=== PATIENT | male | born 1980 | race Caucasian/White ===

== ENCOUNTER 2025-07-17 16:31 | Emergency (ER) | payer BC, SELFPAY ==
--- OUTSIDE RECORDS SUMMARY | 2025-07-13 15:30 | XMS_ITS | Encounter Summary ---
Author Organization [facility] Address [address] [address] Phone Care Team Providers Care Clinical Trials Specialist Name Role Phone Wil Cao MD Primary Care Provider Reason for Visit * Reason Comments Hypertension Encounter Details Date Type Department Care Team (Late st Contact Info) Description 07/13/2025 3:30 PM EDT Office Visit [facility] [address] [phone] Aiyana Callahan ARNP [address] [phone] Essential hypertension (Primary Dx) Social History Tobacco Use Types Packs/Day Years Used Date Smoking Tobacco: Former Smokeless Tobacco: Never Alcohol Use Standard Drinks/Week Comments Yes 0 (1 standard drink = 0.6 oz pure alcohol) Alcoholic Drinks/day: Occasional social drink Sex and Gender Information Value Date Recorded Sex Assigned at Not on file Legal Sex Male 4:46 PM EST Gender Identity Not on file Sexual Orientation Not on file documented as of this encounter Last Filed Vital Signs Vital Sign Reading Time Taken Comments Blood Pressure 138/90 07/13/2025 3:33 PM EDT Pulse 75 07/13/2025 3:33 PM EDT Temperature - - Respiratory Rate - - Oxygen Saturation 97% 07/13/2025 3:33 PM EDT Inhaled Oxygen Concentration - - Weight 132 kg (291 lb 3.2 oz) 07/13/2025 3:33 PM EDT Height - - Body Mass Index 37.39 03/16/2019 12:00 PM EDT documented in this encounter Patient Instructions * Patient Instructions* Aiyana Callahan ARNP - 07/13/2025 3:30 PM EDT Blood pressure monitoring education: Monitor home blood pressure values after sitting for 5 minutes with back and arm support. Keep a log. Bring your log and blood pressure cuff to your next visit. documented in this encounter Progress Notes * Aiyana Callahan ARNP - 07/13/2025 3:30 PM EDT Images from the original note were not included. Patient Name: Alex Amaro, Male Date of : 1980, 45 y.o. Date: 07/13/2025 History of Present Illness Mr.. Alex Amaro is a 45 y.o.-year-old male with history of obesity and HTN H/o TACOS and never wanted to use CPAP. Had lost weight last year, but gained it back. Recently restarted regular exercise and now incorporated heavy weight lifting. Home BP 120/70s. Past Medical History Past Medical History: Diagnosis Date Anxiety disorder Hypertension Hypogonadism Irritable bowel syndrome Past Surgical History Past Surgical History: Procedure Laterality Date HERNIA REPAIR umbilical Family History Family History Problem Relation Age of Onset Diabetes Father Social History Social History Tobacco Use Smoking status: Former Smokeless tobacco: Never Substance Use Topics Alcohol use: Yes Comment: Alcoholic Drinks/day: Occasional social drink Review of Systems Constitutional: Negative for chills, fever and weight gain. HENT: Negative for nosebleeds. Eyes: Negative for blurred vision. Respiratory: Negative for cough and shortness of breath. Cardiovascular: Negative for chest pain, palpitations and leg swelling. Gastrointestinal: Negative for abdominal pain, diarrhea, heartburn, nausea, vomiting and poor appetite. Genitourinary: Positive for frequency. Negative for dysuria, flank pain, hematuria and urgency. On/off, followed by Urology Musculoskeletal: Negative. Skin: Negative for rash. Neurological: Negative for dizziness, tingling, tremors, numbness and headaches. Endo/Heme/Allergies: Negative. Psychiatric/Behavioral: Negative. Medication List Current Outpatient Medications Medication Sig Dispense Refill amLODIPine-benazepril (LOTREL 5-10) 5-10 MG per capsule TAKE ONE CAPSULE BY MOUTH EVERY DAY 90 capsule 3 atorvastatin (LIPITOR) 20 MG tablet Take 20 mg by mouth 1 (one) time each day Multiple Vitamin (multivitamin) capsule Take 1 capsule by mouth 1 (one) time each day [facility]-3 Fatty Acids (Fish Oil) 1000 MG capsule delayed-release Take 1 tablet by mouth 1 (one) time each day omeprazole (PriLOSEC) [address] capsule 1 (one) time each day Xyosted 75 MG/0.5ML solution auto-injector Inject 75 mg under the skin 1 (one) time per week alfuzosin (UROXATRAL) 10 MG 24 hr tablet Take 10 mg by mouth in the morning. (Patient not taking: Reported on 07/13/2025) Blood Pressure Monitoring (Omron 3 Series BP Monitor) device 1 Device 1 (one) time each day 1 each 0 No current facility-administered medications for this visit. Allergy List No Known Allergies Physical Exam BP 138/90 (BP Location: Right upper arm, Patient Position: Sitting, BP Cuff Size: Large adult) Pulse 75 Wt 291 lb 3.2 oz (132 kg) SpO2 97% BMI 37.39 kg/m?? Vitals reviewed. Constitutional: He is oriented to person, place, and time. He does not appear ill. No distress. HEENT: Mouth/Throat: Oropharynx is clear and moist. Eyes: Conjunctivae are normal. Neck: No JVD present. Cardiovascular: Normal rate, regular rhythm and normal heart sounds. No murmur heard.He exhibits no edema. Pulmonary/Chest: Effort normal and breath sounds normal. No respiratory distress. Abdominal: There is no abdominal tenderness. No hernia. Neurological: He is alert and oriented to person, place, and time. Skin: Skin is warm and dry. No rash noted. No erythema. Psychiatric: He has a normal mood and affect. His behavior is normal. Labs Chemistry Lab Units 04/26/25 0000 02/28/25 1636 08/29/24 1153 05/02/24 1153 07/20/23 1230 CREATININE mg/dL -- 0.91 -- -- -- BUN mg/dL -- 17 -- -- -- POTASSIUM mmol/L -- 4.3 -- -- -- SODIUM mmol/L -- 136 -- -- -- CO2 mmol/L -- 27 -- -- -- CHLORIDE mmol/L -- 103 -- -- -- ALBUMIN g/dL -- 3.9 -- -- -- EGFR mL/min/1.73m2 -- 107 -- -- -- HEMATOCRIT 47.4 -- 48.8 48.4 50.7 HEMOGLOBIN 15.4 -- -- -- -- PLATELETS AUTO 10*3/UL 218 -- -- -- -- Bone Mineral Lab Units 02/28/25 1636 CALCIUM mg/dL 9.5 ALK PHOS unit/L 79 Assessment & Plan 1. Essential hypertension Alex is a middle aged man with HTN in a setting of Obesity, TACOS -reportedly not on CPAP, and hypogonadism on Testosterone. BP sub optimal recently Continue Amlodipine/Benazepril (Lotrel) 5-10 mg QD for now No Edema Normal Renal function Secondary HTN lab work-up Negative Obesity- Discussed weight loss, pt thinking about GLP-1 Decrease dietary NA intake Avoid NSAIDs/OTC Decongestant medication Continue f/u with Urology for urinary frequency -Reports Sleep study is scheduled -Referred for 24 hour Ambulatory BP monitor Orders Placed This Encounter Blood Pressure Monitoring (Omron 3 Series BP Monitor) device Return in about 4 weeks (around 08/10/2025) for Next scheduled follow-up with Gayathri for BP check in the next 2-4 weeks . BRIGETTE Michael Cosigned by Conrad Etienne MD at 07/16/2025 8:48 PM EDT documented in this encounter Plan of Treatment Upcoming Encounters Date Type Department Care Team (Late st Contact Info) Description 08/07/2025 9:00 AM EDT Clinical Support [facility] [address] [phone] 08/08/2025 8:45 AM EDT Office [facility] [address] [phone] Aiyana Callahan ARNP [address] [phone] documented as of this encounter Visit Diagnoses Diagnosis Essential hypertension- Primary documented in this encounter Care Teams Clinical Trials Specialist Relationship Specialty Start Date End Date Wil Cao MD [address] [place] [address] PCP - General 11/05/20 documented as of this encounter
--- NOTE | ~2025-07-17 | XR_ITS ---
CLINICAL HISTORY: 1V CHEST 1 view chest x-ray Comparison: None provided Findings: No consolidation or effusion. Normal size heart. No acute fracture. IMPRESSION: 1. No acute findings. This document has been electronically signed by: Heike Jones MD on 07/17/2025 20:03:40
--- NOTE | 2025-07-17 16:33 | ECG_ITS ---
Test Reason : CP Blood Pressure : */* mmHG Vent. Rate : 115 BPM Atrial Rate : 115 BPM P-R Int : 150 ms QRS Dur : 82 ms QT Int : 300 ms P-R-T Axes : 16 27 0 degrees QTcB Int : 415 ms Sinus tachycardia Minimal voltage criteria for LVH, may be normal variant ( R in aVL ) Cannot rule out Anterior infarct , age undetermined Abnormal ECG No previous ECGs available Referred By: Suzie Stephens Electronically Signed By: Doe Phillips
[2025-07-17 16:49] VITALS: BP 147/74; PULSE 95; RESP 16; TEMP 36.2; O2SAT 95; BMI 24.4
--- NOTE | 2025-07-17 16:51 | ED.CHESTPAIN ---
HPI - Chest Pain General Chief Complaint: Chest Pain Stated Complaint: chest pain Time Seen by Provider: 07/17/25 19:14 Source: patient Mode of arrival: ambulatory Limitations: no limitations History of Present Illness ED Provider: DR. Chaudhary HPI narrative: 45-year-old male came in for evaluation of chest pain started about 2 weeks ago when his I watch detected rapid heartbeat at 180's patient felt slight left-sided chest pain that resolved shortly after patient has been getting chest pain on and off no clear aggravating factor, no clear relieving factors, patient Reportedly at 14:00 while he was at the gym today while he was lifting weight start to have mid chest pain that radiate toward the left shoulder, associated with shortness of breath that lasted for about 1 hour, patient feel resolution of all his symptoms. Related Data Allergies Allergy/AdvReac Type Severity Reaction Status Date / Time No Known Allergies Allergy Verified 07/17/25 16:51 Review of Systems Review of Systems: all other systems are reviewed and are negative Constitutional: Reports as per HPI and Reports no additional constitutional complaints Eyes: Reports as per HPI and Reports no additional eye complaints Reports system reviewed and no additional complaints, except as documented Cardiovascular: Reports as per HPI and Reports no additional cardiovascular complaints Respiratory: Reports as per HPI and Reports no additional respiratory complaints Gastrointestinal: Reports as per HPI and Reports no additional gastrointestinal complaints Genitourinary: Reports no additional female genitourinary complaints Musculoskeletal: Reports no additional musculoskeletal complaints Skin/Breast: Reports system reviewed and no additional complaints, except as docu Psychiatric: Reports no additional psychiatric complaints Endocrine: Reports no additional endocrine complaints Hematologic/Lymphatic: Reports no additional hematologic/lymphatic complaints Allergic/Immunologic: Reports no additional allergic/immunologic complaints Reports system reviewed and no additional complaints, except as documented and Reports Abnormal speech present [facility] Social History Social History Smoked in Last 30 Days: No Use of substances other than those prescribed or required for medical reasons: No Advance Directives: No Advance Directives Information Provided: Yes Physical Exam Vital Signs: Vital Signs: Last Vital Signs Temp 97.2 F 07/17/25 16:49 Pulse 78 07/17/25 19:17 Resp 16 07/17/25 19:17 BP 168/100 H 07/17/25 19:40 Pulse Ox 97 07/17/25 19:17 O2 Del Method Room Air 07/17/25 19:17 BMI result Body Mass Index 24.4 Vital signs have been reviewed and appear to be correct. Blood pressure elevated. Heart rate normal. Respiratory rate normal. Temperature normal. Oxygen saturation normal. Appearance: Alert. Oriented X3. No acute distress. Head: Normal external exam. Normocephalic. Atraumatic. No Mcdermott signs noted. No raccoon eyes noted Eyes: PERRLA. EOMI. Conjunctiva and sclera normal. Eyelids normal. ENT: TM's Normal. Pharynx normal. Uvula midline. Moist mucous membranes. No trismus noted. No drooling noted. No muffled voice noted. Neck: Normal inspection. Neck supple. FROM. No adenopathy. Thyroid Normal. No meningeal signs. No neck mass noted. CVS: Normal heart rate and rhythm. Heart sound normal. No murmurs noted. Pulses normal throughout. Respiratory: No respiratory distress. Painless inspiration. Breath sounds normal. No wheezes/rales/rhonchi noted. Chest nontender. No accessory muscle usage noted or decreased air movement noted. Abdomen: Soft and nontender. Bowel sounds normal in all 4 quadrants. No distention noted. No organomegaly noted. No visible injury noted. Back: No CVA tenderness. Full range of motion noted. Skin: Skin warm and dry. Normal skin color. Normal skin turgor. No rashes/lesions/lacerations noted. Extremities: No lower extremity edema. Extremities exhibit normal range of motion. Extremities nontender. Neuro: Oriented X 3. Cranial nerve exam: II-XII are grossly intact No motor deficit. No sensory deficit. Reflexes normal. Course Course Course Narrative: This is a Rapid Medical Examination (RME) performed by Patricia Stephens PA-C in triage. Full HPI, ROS, assessment and treatment plan per primary provider in the Main ED. Hx: 45 yo M here for eval of left sided chest pain intermittent x2.5 weeks. also endorses SOB today while at the gym. 2/10 pain at present. Plan: labs, ekg Reevaluation(s) Reevaluation #1: 45-year-old male came in for evaluation of left-sided chest pain for the past 3 weeks on and off, troponin is negative x2, low risk for DVT or pulmonary embolism with negative D-dimer, patient with history of high blood pressure and high cholesterol. Will have the patient follow-up with a internal medicine hospitalist as an outpatient. Time: 20:11 Medical Decision Making Differential Diagnosis Differential Diagnoses: The differential diagnosis associated with the presentation includes ( ACS, pulmonary embolism, muscular chest pain, pneumonia, pneumothorax, pleural effusion, myofascial chest pain.) Admission/Observation Consideration of admission/observation: Escalation of care including admission/observation considered Lab Data MDM Lab Attestation statement: I reviewed the patient's lab results. 07/17/25 17:02 07/17/25 17:02 Labs: Lab Results 07/17/25 07/17/25 Range/Units 17:02 19:50 WBC 4.8 (4.8-10.8) X10*3/uL RBC 5.77 (4.60-5.80) X10*6/uL Hgb 16.2 (14.0-18.0) g/dl Hct 48.3 (42.0-52.0) % MCV 83.7 (80.0-98.0) fL MCH 28.1 (27.0-33.0) pg MCHC 33.5 (31.0-36.0) g/dl RDW 13.2 (11.0-16.0) % Plt Count 207 (160-400) X10*3/uL MPV 10.8 (9.4-12.4) fL Immature Gran % (Auto) 0.2 (0.0-0.4) % Neut % (Auto) 53.8 (45-73) % Lymph % (Auto) 32.0 (20-40) % [place] % (Auto) 10.7 (2-11) % Eos % (Auto) 2.7 (0-4) % Baso % (Auto) 0.6 (0-2) % Lymph # (Auto) 1.5 (1.2-4.9) X10*3/uL [place] # (Auto) 0.5 (0.1-1.2) X10*3/uL Eos # (Auto) 0.1 (0.0-0.4) X10*3/uL Baso # (Auto) 0.0 (0.0-0.2) X10*3/uL Abs Immat Gran (auto) 0.01 (0.00-0.03) X10*3/uL Absolute Neuts (auto) 2.6 (2.0-8.3) x10*3/uL Absolute Nucleated RBC 0.000 (0.0-0.012) X10*3/uL Nucleated RBC % (auto) 0.0 (0.0-0.2) /100WBC D-Dimer High Sensitivty < 150 NG/ML Sodium 139 (135-145) mmol/L Potassium 4.0 (3.3-5.1) mmol/L Chloride 103 (96-108) mmol/L Carbon Dioxide 28 (22-29) mmol/L Anion Gap 12 (12-20) BUN 14 (9-16) mg/dL Creatinine 1.01 (0.5-1.4) mg/dL Estim Creat Clear Calc 101.3 Estimated GFR > 60 Random Glucose 85 (60-115) mg/dL Calcium 9.4 (8.4-10.2) mg/dL Magnesium 2.0 (1.6-2.6) mg/dL Total Bilirubin 0.6 (0.0-1.0) mg/dL AST 35 (5-37) U/L ALT 48 H (0-40) U/L Alkaline Phosphatase 76 (39-117) U/L Troponin I High Sens < 2.7 (<3.5-35.0) ng/L Total Protein 7.5 (6.5-8.0) g/dL Albumin 4.5 (3.5-5.0) g/dL Lipase 37 (8-78) U/L Independent Interpretation I performed an independent interpretation of an: Plain X-Ray ( Chest: No acute intrathoracic pathology.) Radiology Impression Discussion of test interpretation with radiology: I have reviewed the radiologist's reading. Chronic Conditions Patient?s care impacted by: Hypertension and Other ( High cholesterol.) Discharge Plan Discharge Clinical Impression: Atypical chest pain Patient Disposition: Home, Self-Care Instructions: Chest Pain (ED) Referrals: Wil Cao MD [Primary Care Provider, Internal Medicine] Sarwat Florian MD [Physician, Cardiology] Print Language: Belarusian
[2025-07-17 17:06] LABS: MANUAL DIFF FLAG NO
[2025-07-17 17:07] LABS: Hematocrit 48.3 % (42.0-52.0); Hemoglobin 16.2 g/dl (14.0-18.0); Imm Gran Abs Auto 0.01 X10*3/uL (0.00-0.03); Imm Gran Pct Auto 0.2 % (0.0-0.4); Lymphocytes Absolute Auto 1.5 X10*3/uL (1.2-4.9); Mean Corpuscular HGB Conc 33.5 g/dl (31.0-36.0); Mean Corpuscular Hemoglobin 28.1 pg (27.0-33.0); Mean Corpuscular Volume 83.7 fL (80.0-98.0); NRBC Abs Auto 0.000 X10*3/uL (0.0-0.012); NRBC Pct Auto 0.0 /100WBC (0.0-0.2); Platelet Count 207 X10*3/uL (160-400); Red Blood Count 5.77 X10*6/uL (4.60-5.80); White Blood Count 4.8 X10*3/uL (4.8-10.8)
[2025-07-17 17:23] LABS: Alanine Aminotransferase 48 U/L (0-40); Albumin Level 4.5 g/dL (3.5-5.0); Alkaline Phosphatase 76 U/L (39-117); Anion Gap 12 (12-20); Aspartate Amino Transferase 35 U/L (5-37); Blood Urea Nitrogen 14 mg/dL (9-16); Calcium 9.4 mg/dL (8.4-10.2); Carbon Dioxide 28 mmol/L (22-29); Chloride 103 mmol/L (96-108); Creatinine Clr Calc Pharmacy 101.3; Estimated Glomerular Filt Rate > 60; Lipase 37 U/L (8-78); Magnesium 2.0 mg/dL (1.6-2.6); Potassium 4.0 mmol/L (3.3-5.1); Sodium 139 mmol/L (135-145); Total Protein 7.5 g/dL (6.5-8.0)
[2025-07-17 17:31] LABS: Troponin-I High Sensitivity < 2.7 ng/L (<3.5-35.0)
[2025-07-17 19:17] VITALS: BP 201/113; PULSE 78; RESP 16; O2SAT 97
[2025-07-17 19:40] VITALS: BP 168/100
[2025-07-17 20:07] LABS: D Dimer High Sensitivity < 150 NG/ML
--- OUTSIDE RECORDS SUMMARY | 2025-07-17 20:08 | XMS_ITS | Clinical Summary ---
Author Organization [facility] [address] [place] [address] [place] [phone] Phone Care Team Providers Care Treating Plant Pumper Name Role Phone Wil Cao MD Primary Care Provider [phone] Allergies No known active allergies Surgical History Surgery Date Site/Laterality Comments OTHER SURGICAL HISTORY 2005 apprx PROCEDURE: [place] CURTG/CAUT ANAL FISSURE W/DILAT SPHNCTR SPX 1ST HERNIA REPAIR 02/02/15 PROCEDURE: HISTORICAL HERNIA REPAIR/UMB OTHER SURGICAL HISTORY 2014 PROCEDURE: ---- HEMORRHOIDS ---- OTHER SURGICAL HISTORY PROCEDURE: ---- OTHER ----; COMMENT: 2 angiolipoma removals from L upper arm Medical History Medical History Date Comments Anal fissure 04/29/2012 DX:Anal fissure Sravanthi-rectal abscess 03/18/2009 DX:Sravanthi-rect al abscess 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 DX:I mpotence of organic origin Overweight(278.02) 02/15/2009 DX:Overweight (278.02) Family History Medical History Relation Name Comments Other cancer Aunt 1 uncertain prima ry Diabetes Father Multiple sclerosis Maternal Grandmother Coronary artery disease Paternal Grandmother Diabetes Paternal Grandmother Hypertension Neg Hx Relation Name Status Comments Aunt 1 Aunt 2 Brother Alive Father Alive Maternal Grandfather Alive Maternal Grandmother Alive Mother Alive Paternal Grandfather (Age 76) Paternal Grandmother Alive Sister Alive Son Alive Social History Tobacco Use Types Packs/Day Years Used Date Smoking Tobacco: Former Smokeless Tobacco: Former Alcohol Use Standard Drinks/Week Comments Yes 0 (1 standard drink = 0.6 oz pur e alcohol) Sex and Gender Information Value Date Recorded Sex Assigned at Male 02/28/2025 4:43 PM EDT Legal Sex Male 1:57 AM EST Gender Identity Male 02/28/2025 4:43 PM EDT Sexual Orientation Straight 02/28/2025 4: 43 PM EDT Obstetrics History Last Filed Vital Signs Vital Sign Reading Time Taken Comments Blood Pressure 129/81 02/28/2025 4:20 PM EDT Pulse 60 02/28/2025 4:20 PM EDT Temperature 36.5 C (97.7 F) 02/28/2025 4:20 PM EDT Respiratory Rate - - Oxygen Saturation 96% 02/28/2025 4:20 PM EDT Inhaled Oxygen Concentration - - Weight 127 kg (280 lb) 02/28/2025 4:12 PM EDT Height 188 cm (6' 2 ) 02/28/2025 4:12 PM EDT Body Mass Index 35.95 02/28/2025 4:12 PM EDT Plan of Treatment Health Maintenance Due Date Last Done Comments Hepatitis A Vaccines (1 of 2 - Risk 2-dose series) 1999 Hepatitis B Vaccines (1 of 3 - 19+ 3-dose series) 1999 Cholesterol Screening (Lipid Panel) 09/28/2022 Colorectal Cancer Screening: Colonoscopy 09/28/2022 HIV Screening 09/28/2022 Hepatitis C Screening 09/28/2022 Social Influencers of Health Screening 09/28/2022 Depression Screening 10/26/2024 COVID-19 Vaccine (1 - 2023-2 5 season) 2025 Influenza Vaccine (#1) 2025 Hypertension/CHF/CAD Annual BMP Blood Test 02/28/2026 02/28/2025 DTaP,Tdap,and Td Vaccines (3 - Td or Tdap) 10/30/2030 10/30/2020, 09/05/2010 RSV Immunization Adult Patients (1 - 1-dose 75+ series) 2055 HIB Vaccines Aged Out No longer eligi ble based on patient's age to complete this topic HPV Vaccines Aged Out No longer eligi ble based on patient's age to complete this topic IPV Vaccines Aged Out No longer eligi ble based on patient's age to complete this topic MMR Vaccines Aged Out No longer eligi ble based on patient's age to complete this topic Meningococcal ACWY Vaccine Aged Out N o longer eligible based on patient's age to complete this topic Meningococcal B Vaccine Aged Out No l onger eligible based on patient's age to complete this topic Pneumococcal Vaccine: Pediatrics (0 to 5 Years) and At-Risk Patients (6 to 49 Years) Aged Out No longer eligible b ased on patient's age to complete this topic RSV Immunization Patients Under 20 months Aged Out No longer eligible b ased on patient's age to complete this topic Varicella Vaccines Aged Out No longer eligible based on patient's age to complete this topic Procedures Procedure Name Priority Date/Time Associated Diagnosis Comments COMPREHENSIVE METABOLIC PANEL STAT 02/28/2025 4:36 PM EDT from Last 3 Months or Most Recently Relevant to Health Maintenance Results * Comprehensive metabolic panel (02/28/2025 4:36 PM EDT) Sodium 136 133 - 145 mmol/L LAB CHEMISTRY METHOD 02/28/2025 5:10 PM [facility] Potassium 4.3 3.5 - 5.5 mmol/L LAB CHEMISTRY METHOD 02/28/2025 5:10 PM [facility] Chloride 103 96 - 110 mmol/L LAB CHEMISTRY METHOD 02/28/2025 5:10 PM [facility] CO2 27 21 - 32 mmol/L LAB CHEMISTRY METHOD 02/28/2025 5:10 PM [facility] Anion Gap 6 3 - 11 LAB CHEMISTRY METHOD 02/28/2025 5:10 PM [facility] Glucose 86 70 - 100 mg/dL LAB CHEMISTRY METHOD 02/28/2025 5:10 PM [facility] BUN 17 5 - 25 mg/dL LAB CHEMISTRY METHOD 02/28/2025 5:10 PM [facility] Creatinine 0.91 0.70 - 1.30 mg/dL LAB CHEMISTRY METHOD 02/28/2025 5:10 PM [facility] eGFR 107 >=60 mL/min/1. 73m2 LAB CHEMISTRY METHOD 02/28/2025 5:10 PM EDT [facility] Comment:Calculation based on the Chronic Kidney Disease Epidemiology Collaboration (CKD-EPI) equation refit without adjustment for race. BUN/Creatinine Ratio 18.7 LAB CHEMISTRY METHOD 02/28/2025 5:10 PM T [facility] Calcium 9.5 8.5 - 10.5 mg/dL LAB CHEMISTRY METHOD 02/28/2025 5:10 PM T [facility] AST (SGOT) 27 10 - 42 unit/L LAB CHEMISTRY METHOD 02/28/2025 5:10 PM [facility] ALT (SGPT) 31 10 - 60 unit/L LAB CHEMISTRY METHOD 02/28/2025 5:10 PM [facility] Alkaline Phosphatase 79 42 - 121 unit/L LAB CHEMISTRY METHOD 02/28/2025 5:10 PM [facility] Total Protein 7.4 6.0 - 8.0 g/dL LAB CHEMISTRY METHOD 02/28/2025 5:10 PM [facility] Albumin 3.9 3.2 - 5.0 g/dL LAB CHEMISTRY METHOD 02/28/2025 5:10 PM [facility] Total Bilirubin 0.7 0.0 - 1.4 mg/dL LAB CHEMISTRY METHOD 02/28/2025 5:10 PM [facility] Blood Venous blood specimen / Unknown Venipuncture / Unknown 02/28/2025 4:36 PM EDT 02/28/2025 4:40 PM EDT us Jaziel Ricketts MD LAB BLOOD ORDERABLES Final Result [facility] [address] [place] [address], [place] [phone] from Last 3 Months or Most Recently Relevant to Health Maintenance Insurance [facility] Care Teams Treating Plant Pumper Relationship Specialty Start Date End Date Wil Cao MD [address] [address] PCP - General Internal Medicine 02/28/25
--- OUTSIDE RECORDS SUMMARY | 2025-07-17 20:08 | XMS_ITS | Encounter Summary ---
Author Organization [facility] Address [address] [facility] [address] [place] [address] Phone Care Team Providers Care Nba Player Name Role Phone Wil Cao MD Primary Care Provider Encounter Details Date Type Department Care Team (Late st Contact Info) Description 07/12/2025 Documentation Only [facility] [address] [facility] [address] [place] [phone] Danita Sanchez MA [address] [facility] [address] [place] [phone] Social History Tobacco Use Types Packs/Day Years [...] on file documented as of this encounter Plan of Treatment Upcoming Encounters Date Type Department Care Team (Late Contact Info) Description 08/07/2025 9:00 AM EDT Clinical Support [facility] [address] [facility] [address] [place] [phone] 08/08/2025 8:45 AM EDT Office Visit [facility] [address] [phone] Aiyana Callahan ARNP [address] [phone] documented as of this encounter Visit Diagnoses Not on filedocumented in this encounter Care Teams Nba Player Relationship Specialty Start Date End Date Wil Cao MD [address] [place] [address] PCP - General 11/05/20 documented as of this encounter
--- OUTSIDE RECORDS SUMMARY | 2025-07-17 20:08 | XMS_ITS ---
Author Name [facility] Organization Unknown Care Team Organization Name Specialty Phone Email Start Date End Da te [facility] Maryam Humphrey Primary Care 09/02/20222023
--- OUTSIDE RECORDS SUMMARY | 2025-07-17 20:08 | XMS_ITS | Encounter Summary ---
Author Organization [facility] Address [address] [facility] [address] [place] [address] Phone Care Team Providers Care Fare Register Repairer Name Role Phone Wil Cao MD Primary Care Provider [phone] Encounter Details Date Type Department Care Team (Late Contact Info) Description 03/05/2021 Orders Only [facility] [address] [place] [phone] Provider, MD Wilbur Social History Tobacco Use Types Packs/Day Years Used Date Smoking Tobacco: Never Alcohol Use Standard Drinks/Week Comments Yes 0 (1 standard drink = 0.6 oz pure alcohol) Alcoholic Drinks/day: Occasional social drink Sex and Gender Information Value Date Recorded Sex Assigned at Not on file Legal Sex Male 4:46 PM EST Gender Identity Not on file Sexual Orientation Not on file COVID-19 Exposure Response Date Recorded In the last month, have you been in contact with someone who was confirmed or suspected to have Coronavirus / COVID-19? No / Unsure 03/06/2021 12:45 PM EDT documented as of this encounter Plan of Treatment Upcoming Encounters Date Type Department Care Team (Late Contact Info) Description 08/07/2025 9:00 AM EDT Clinical Support [facility] [address] [facility] [address] [place] [phone] 08/08/2025 8:45 AM EDT Office Visit [facility] PMary Anne [address] [phone] Callahan Aiyana DIRECTOR OF EARLY CHILDHOOD EDUCATION [address] [phone] documented as of this encounter Procedures Procedure Name Priority Date/Time Associated Diagnosis Comments EXT RESULT ENTRY Routine 10/30/2020 documented in this encounter Results * EXT RESULT ENTRY (10/30/2020) us Historical Provider LAB BLOOD ORDERABLES Kya l Result documented in this encounter Visit Diagnoses Not on filedocumented in this encounter Care Teams Fare Register Repairer Relationship Specialty Start Date End Date Wil Cao MD [address] [place] [phone] PCP - General 11/05/20 documented as of this encounter
--- OUTSIDE RECORDS SUMMARY | 2025-07-17 20:08 | XMS_ITS | Clinical Summary ---
Author Organization [facility] Address [address] [phone] Phone Care Team Providers Care Coal Loader Name Role Phone Wil Cao MD Primary Care Provider Allergies No known active allergies Medications omeprazole (PriLOSEC) [address] capsule 1 (one) time each day 6 Active Multiple Vitamin (multivitamin) capsule Take 1 capsule by mouth 1 (one) time each day Active [place]-3 Fatty Acids (Fish Oil) 1000 MG capsule delayed-release Take 1 tablet by mouth 1 (one) time each day Active Xyosted 75 MG/0.5ML solution auto-injector Inject 75 mg under the skin 1 (one) time per week 4 Active alfuzosin (UROXATRAL) 10 MG 24 hr tablet Take 10 mg by mouth in the morning. 4 Active amLODIPine-benaze pril (LOTREL 5-10) 5-10 MG per capsuleIndication s:Essential hypertension TAKE ONE CAPSULE BY MOUTH EVERY DAY 90 capsule 3 5 Active Blood Pressure Monitoring (Omron 3 Series BP Monitor) deviceIndications :Essential hypertension 1 Device 1 (one) time each day 1 each 5 Active atorvastatin (LIPITOR) 20 MG tablet Take 20 mg by mouth 1 (one) time each day 5 Active Active Problems Problem Noted Date Diagnosed Date Esophagitis, not otherwise specified 01/14/2023 Steatosis of liver 01/14/2023 Severe obesity 01/14/2023 Perirectal abscess 01/14/2023 Overview (01/14/2023): cx + for MRSA and required extended PO abx and 2 surgeries w/ Dr. 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 [address] [phone] Aiyana Callahan ARNP Essential hypertension (Primary Dx) 07/12/2025 Documentation Only [facility] [address] [phone] Danita Sanchez MA from Last 3 Months Immunizations Immunization Administration Dates Next Due Tdap 10/30/2020,09/05/2010 Family History Medical History Relation Comments Diabetes Father Relation Status Comments Father Unknown Mother Unknown Social History Tobacco Use Types Packs/Day Years Used Date Smoking Tobacco: Former Smokeless Tobacco: Never Tobacco Cessation:Counseling Given: Not Answered Alcohol Use Standard Drinks/Week Comments Yes 0 (1 standard drink = 0.6 oz pure alcohol) Alcoholic Drinks/day: Occasional social drink Sex and Gender Information Value Date Recorded Sex Assigned at Not on file Legal Sex Male 4:46 PM EST Gender Identity Not on file Sexual Orientation Not on file Last Filed Vital Signs Vital Sign Reading Time Taken Comments Blood Pressure 138/90 07/13/2025 3:33 PM EDT Pulse 75 07/13/2025 3:33 PM EDT Temperature - - Respiratory Rate - - Oxygen Saturation 97% 07/13/2025 3:33 PM EDT Inhaled Oxygen Concentration - - Weight 132 kg (291 lb 3.2 oz) 07/13/2025 3:33 PM EDT Height 188 cm (6' 2 ) 03/16/2019 12:00 PM EDT Body Mass Index 37.39 03/16/2019 12:00 PM EDT Plan of Treatment Upcoming Encounters Date Type Department Care Team (Late st Contact Info) Description 08/07/2025 9:00 AM EDT Clinical Support [facility] [address] [place] [phone] 08/08/2025 8:45 AM EDT Office Visit [facility] [address] [phone] Aiyana Callahan ARNP [address] [phone] Health Maintenance Due Date Last Done Comments Hepatitis B Vaccine (1 of 3 - 19+ 3-dose series) 05/30 Pneumococcal Vaccine: Peds ( 0 to 5 Years) and At-Risk Patients (6 to 49 Years) (1 of 2 - PCV) 1999 Influenza Vaccine (#1) 2025 Procedures Procedure Name Priority Date/Time Associated Diagnosis Comments EXT RESULT ENTRY Routine 04/26/2025 from Last 3 Months Results * EXT RESULT ENTRY (04/26/2025) Hemoglobin 15.4 13.5 - 17.5 Hematocrit 47.4 41.0 - 53.0 Platelets 218 150 - 399 10*3/UL 04/26/2025 Historical Provider LAB BLOOD ORDERABLES Kya l Result from Last 3 Months Insurance [facility] Care Teams Coal Loader Relationship Specialty Start Date End Date Wil Cao MD [address] [place] [phone] PCP - General 11/05/20
[2025-07-17 20:15] LABS: Troponin-I High Sensitivity < 2.7 ng/L (<3.5-35.0)
[2025-07-17 21:18] VITALS: BP 168/100; PULSE 78; RESP 16; TEMP 36.7; O2SAT 97
== END 2025-07-17 21:21 | disposition home or self-care (01) ==
PROVIDERS: Physician Assistant Medical; Emergency Provider Emergency Medicine; PCP Internal Medicine
DX: R07.89 Other chest pain (principal); I10 Essential (primary) hypertension; E78.5 Hyperlipidemia, unspecified; Z79.899 Other long term (current) drug therapy
CPT/HCPCS: 36415; 71045; 80053; 82550; 83690; 83735; 84484; 85025; 85379; 93005; 99283; 99284

== ENCOUNTER → 2025-07-17 16:33 | Outpatient (BNV) | payer BC, SELFPAY | PROVIDERS: Emergency Provider Emergency Medicine; PCP Internal Medicine; Visit Provider Internal Medicine Cardiovascular Disease | DX: R00.0 Tachycardia, unspecified (principal) | CPT/HCPCS: 93010 ==

== ENCOUNTER → 2025-07-17 19:14 | Outpatient (BNV) | payer BC, SELFPAY | PROVIDERS: Emergency Provider Emergency Medicine; PCP Internal Medicine; Visit Provider Student in an Organized Health Care Education/Training Program | DX: R07.89 Other chest pain (principal) | CPT/HCPCS: 71045 ==

== ENCOUNTER 2025-09-04 08:24 | Outpatient (AMB) | payer BC, SELFPAY ==
--- OUTSIDE RECORDS SUMMARY | 2025-09-01 23:59 | XMS_ITS | Continuity of Care Document ---
Author Organization [facility] Address [address] [place] [address]- Care Team Providers Care Sheet Combining Operator Name Role Phone Wil Cao MD Primary Care Physician [phone] Encounter [facility] ACCT R [id number] Date(s): 08/02/25 - 09/01/25 [facility] [address] [place] [address]- Encounter Type: Triage Allergies, Adverse Reactions, Alerts No Known Allergies Immunizations Given and Recorded Vaccine Date Status Refusal Reason tetanus/diphtheria/pertussis, acel(Tdap) 10/30/20 Recorded tetanus/diphtheria/pertussis, acel(Tdap) 09/05/10 Recorded Medications amlodipine-benazepril 10 mg-20 mg oral capsule 0 Refills, Maintenance, 08/10/25 12:50:00 PM EDT, Partial fill upon patient request if the prescription is for a schedule II opioid drug. Start Date: 08/10/25 Status: Ordered Medication Dispense Status: Completed Total Allowed Fills: 1 Fills Dispensed: 0 atorvastatin 20 mg oral tablet 1 tablet, By Mouth, Daily, # 90 tablet, 3 Refills, Maintenance, 06/10/25 11:27:00 AM EDT, [facility], 186, cm, 03/06/25 8:08:00 EDT, Height, 131.9, kg, 10/13/24 10:15:00 EST, Dry Weight Start Date: 06/10/25 Status: Ordered Medication Dispense Status: Completed Quantity: 90.0 Unit: tablet Total Allowed Fills: 1 Fills Dispensed: 0 AutoCPAP, 6-16 cm H20 AutoCPAP, 6-16 cm H20, See Instructions, # 1 each, Refills 0, Tot. Refills 0, Maintenance, DX: TACOS ICD: G47.33 HT: 186CM WT: 130KG, 04/25/25 8:25:00 AM EDT, Supply Start Date: 04/25/25 Status: Ordered Medication Dispense Status: Completed Quantity: 1.0 Unit: each Total Allowed Fills: 1 Fills Dispensed: 0 betamethasone topical dipropionate, augmented 0.05% ointment 0 Refills, Maintenance, 05/03/22 10:08:00 AM EDT, Partial fill upon patient request if the prescription is for a schedule II opioid drug. Start Date: 05/03/22 Status: Ordered Medication Dispense Status: Completed Total Allowed Fills: 1 Fills Dispensed: 0 clindamycin 1% topical lotion 0 Refills, Maintenance, 05/28/22 3:40:00 PM EDT, Partial fill upon patient request if the prescription is for a schedule II opioid drug. Start Date: 05/28/22 Status: Ordered Medication Dispense Status: Completed Total Allowed Fills: 1 Fills Dispensed: 0 Fiber Choice = 3 Gm, 3 times a day, 0 Refills, Maintenance, 08/26/23 1:24:00 PM EDT, Partial fill upon patient request if the prescription is for a schedule II opioid drug. Start Date: 08/26/23 Status: Ordered Medication Dispense Status: Completed Total Allowed Fills: 1 Fills Dispensed: 0 Golytely - oral powder for reconstitution 240 mL, By Mouth, Every 10 minutes, until 4 liters are consumed or the rectal effluent is clear, # 4,000 mL, 0 Refills, Maintenance, 02/27/25 3:05:00 PM EDT, REC Powder, [facility], Partial fill upon patient request if the prescription is for a schedule II opioid drug., 240 mL By Mouth Every 10 minutes,Instr:until 4 liters are consumed or the rectal effluent is clear, 186, cm, 02/27/25 14:33:00 EDT, Height, 131.9, kg, 10/13/24 10:15:00 EST, Dry Weight Start Date: 02/27/25 Status: Ordered Medication Dispense Status: Completed Quantity: 4000.0 Unit: mL Total Allowed Fills: 1 Fills Dispensed: 0 Indications: Encounter for screening for malignant neoplasm of colon; LORazepam 0.5 mg oral tablet 1-2 tablet, By Mouth, Every 8 hours, # 15 tablet, 0 Refills, Maintenance, 07/21/25 2:12:00 PM EDT, [facility], Partial fill upon patient request if the prescription is for a schedule II opioiddrug., 186, cm, 07/21/25 13:39:00 EDT, Height, 131.8, kg, 07/21/25 13:39:00 EDT, Dry Weight Start Date: 07/21/25 Status: Ordered Medication Dispense Status: Completed Quantity: 15.0 Unit: tablet Total Allowed Fills: 1 Fills Dispensed: 0 Multivitamin 0 Refills, Maintenance, 08/26/23 1:23:00 PM EDT, Partial fill upon patient request if the prescription is for a schedule II opioid drug. Start Date: 08/26/23 Status: Ordered Medication Dispense Status: Completed Total Allowed Fills: 1 Fills Dispensed: 0 [place]-3 oral capsule 0 Refills, Maintenance, 08/26/23 1:23:00 PM EDT, Partial fill upon patient request if the prescription is for a schedule II opioid drug. Start Date: 08/26/23 Status: Ordered Medication Dispense Status: Completed Total Allowed Fills: 1 Fills Dispensed: 0 Probiotic Formula By Mouth, Daily, 0 Refills, Maintenance, 08/26/23 1:24:00 PM EDT, Partial fill upon patient request if the prescription is for a schedule II opioid drug. Start Date: 08/26/23 Status: Ordered Medication Dispense Status: Completed Total Allowed Fills: 1 Fills Dispensed: 0 Testosterone Cypionate 200 mg/mL intramuscular solution 0 Refills, Maintenance, 05/03/22 10:08:00 AM EDT, Partial fill upon patient request if the prescription is for a schedule II opioid drug. Start Date: 05/03/22 Status: Ordered Medication Dispense Status: Completed Total Allowed Fills: 1 Fills Dispensed: 0 Problem List Condition Confirmation Course Effective Dates Status Health Status Informant Anxiety 1 Confirmed Active Erectile dysfunction; intracavernosal therapy Confirmed Active Esophagitis; EGD 12/09 Confirmed Active Hyperlipidemia Confirmed Active Hypertension; [facility] Confirmed Active Testosterone deficiency; Dr Calhoun Confirmed Active Impaired fasting glucose Confirmed Active IBS (irritable bowel syndrome) Confirmed Active TACOS (obstructive sleep apnea) Confirmed Active Pseudofolliculitis barbae; Dr Cedeño Confirmed Active Severe obesity (BMI 35.0-39.9) with comorbidity Confirmed Active Fatty liver; Dr Jacques Confirmed Active 1Sertraline was helpful but caused decreased libido Social History Social History Type Response Smoking Status Former smoker, quit more than 30 days ago entered on: 05/28/22 Sexual Orientation Self described orien tation: ; Straight or heterosexual Sex Sex Representation Male (finding) Patient Care team information Care Team Personnel Name: Wil Cao MD Position: [facility] Physician - Primary Care Member Role: PCP Address: [address] [place] [address] Telecom: Care Team Related Persons Name: SANJAY DAVILA Insurance Providers Guarantor name: JEROME DAVILA [employer] Plan Information #: 1 Payer: [employer] P[employer] Payer Identifier: NA Member Number: [id number] Group Number: [id number] Subscriber Identifier: NA Relationship to Subscriber: self Coverage Type: NA Coverage Verification Date: NA Telecom: NA Address:
--- OUTSIDE RECORDS SUMMARY | 2025-09-03 23:59 | XMS_ITS | Continuity of Care Document ---
Author Organization [facility] Address [address] [place] [address]- Care Team Providers Care Wheel Installer Name Role Phone Wil Cao MD Primary [id number]/04/[facility] - 09/03/25 [facility] [address] [place] [address]- Encounter Type: Triage Allergies, Adverse Reactions, Alerts [...] Total Allowed Fills: 1 Fills Dispensed: 0 [place]-3 oral capsule 0 Refills, Maintenance, 08/26/23 1:23:00 [...] Team Personnel Name: Wil Cao MD Position: [facility] Physician - Primary Care Member Role: PCP Address: [address] [place] [address] Telecom: Care Team Related Persons Name: SANJAY DAVILA Insurance Providers Guarantor name: JEROME DAVILA [employer] Plan Information #: 1 Payer: [employer] Payer Identifier: NA Member Number: [id number] Group Number: [id number] Subscriber Identifier: NA Relationship to Subscriber: self Coverage Type: NA Coverage Verification Date: NA Telecom: NA Address:
[2025-09-04 08:28] VITALS: BP 138/92; PULSE 83; BMI 39.2
--- NOTE | 2025-09-04 08:28 | MHC.OFFVIS ---
Vital Signs 09/04/25 08:28 Height 6 ft Weight 289 lb 3.944 oz BMI 39.2 BP 138/92 H Blood Pressure Location Lt brachial Position Sitting Pulse 83 Pulse Source Pulse Oximeter Intake Visit Reasons: -[facility] ER-Chest Pain, Light headed Ground Services Instructor Required: No Allergies No Known Allergies Allergy (Verified 09/04/25 08:29) Medication List - Last Reconciled 09/04/25 by ENRIQUE Brown amlodipine-benazepril 5-10 mg 1 cap PO DAILY atorvastatin 20 mg PO DAILY tadalafil 20 mg PO testosterone enanthate (Xyosted) mg subcut HPI HPI -[facility] ER-Chest Pain, Light headed: Details: Alex is a 45-year-old male with past medical history of obesity, hypertension, hyperlipidemia, reported prediabetes who was recently seen in the emergency room for chest discomfort. He ruled out for ACS and was referred to Cardiology in follow-up. Today he presents for cardiology consultation. He tells me he has already had a exercise stress test and 2 week Holter monitor done at [facility]. The stress test result is available and is normal. The Holter monitor result is not available as of yet. He describes having epigastric area discomfort that can occur after eating and with exertional activities. At times the discomfort will travel up his left chest and into the left shoulder region. This was the discomfort that he went to the ER for. He has soreness in the region of his xiphoid process. He describes having costochondritis in the past. He works out in a gym most days. Recently he has avoided doing lifting exercises to limit chest involvement. His symptom has not improved. He did have an episode of rapid heartbeat occurring during a night of heavy alcohol use. His smart watch showed him that his pulse rate reached as high as 180. He did notice heart palpitations at that time. He has never had presyncope, syncope. No shortness of breath, PND, orthopnea or edema. No prior heart issues. He says his father had issue with a heart artery in the past. Nonsmoker, occasional alcohol use. Works for the [employer]. Is able to do cardio exercises without concerning symptoms. [facility] Medical History (Updated 09/04/25 @ 09:35 by ENRIQUE Brown) HTN (hypertension) Hyperlipidemia Review of Systems Const All systems reviewed & are unremarkable except as noted in HPI and below ENT Denies dizziness Card Reports chest pain, Denies chest pain at rest, Denies chest pain with activity, Reports rapid heart rate, Denies pedal edema, Denies edema, Denies leg edema, Denies lightheadedness, Denies palpitations, Denies dyspnea, Denies dyspnea on exertion and Denies orthopnea Resp Denies cough, Denies dyspnea and Denies dyspnea on exertion GI Details: epigastric area discomfort Denies hematochezia and Denies change in stool character Musc Denies abnormal gait, Denies limited range of motion, Denies muscle cramps, Denies muscle weakness, Denies numbness, Denies radiating pain into limb, Denies stiffness and Denies tingling Neuro Details: discomfort into left shoulder area Denies abnormal gait, Denies dizziness, Denies numbness and Denies tingling Endo Denies palpitations Physical Exam Vital Signs: Last Vital Signs Pulse 83 09/04/25 08:28 BP 138/92 H 09/04/25 08:28 BMI result Body Mass Index 39.2 Const General: cooperative, healthy appearing, comfortable and no acute distress Orientation/consciousness: patient oriented x3 Neck Neck: Yes normal visual inspection Resp Effort & Inspection: normal respiratory effort Auscultation: clear to auscultation bilaterally, no rales, no rhonchi and no wheezes Cardio Rate: regular rate Rhythm: regular rhythm Heart sounds: S1 normal heart sound present, S2 normal heart sound present, no gallops, no murmurs and no rubs Neuro General: patient oriented x3 Extrem General: Yes normal to inspection, No no pedal edema and No calf tenderness Psych Appearance: grossly normal Mental Status: mental status grossly normal Speech and movement: Normal speech and movement present Assessment & Plan Assessment & Plan (1) Chest discomfort: Code(s): R07.89 - Other chest pain Category: Medical Plan: Atypical sounding chest discomfort. ER evaluation and ruled out for ACS. EKG at that time showing sinus tachycardia, rate 115. Exercise stress test done at [facility] on 08/01/2025 showing good exercise tolerance, no EKG changes, hypertensive response with systolic 230-240, intermittent infrequent PVCs. Cardiac risk factors of hypertension, hyperlipidemia, obesity, prediabetes. His current discomfort sounds more musculoskeletal in nature with soreness at the xiphoid process and into left shoulder. Discuss this with him and suggested trial of ibuprofen to help settle inflammation. Will check echocardiogram for completeness. Cardiology follow-up 4-6 weeks, sooner if needed. (2) Palpitation: Code(s): R00.2 - Palpitations Category: Medical Plan: Episode of rapid heartbeat as caught on his smart watch in the setting of heavy alcohol use. Echocardiogram as above. Will check Holter monitor to assess for arrhythmia, specifically PAF. (3) Epigastric discomfort: Code(s): R10.13 - Epigastric pain Category: Medical Plan: As above, soreness in the region of xiphoid process. He reports having recent upper endoscopy without abnormal findings. (4) HTN (hypertension): Code(s): I10 - Essential (primary) hypertension Category: Medical Plan: Blood pressure goal less than 130/80. Blood pressure today 138/92. He reports following with Nephrology and recently had a 24 hour blood pressure monitor done. Following that test results his blood pressure medications were titrated upward. He is currently on amlodipine/benazepril 08/14. No med changes made at this time. Continue to follow with Nephrology. (5) Hyperlipidemia: Code(s): E78.5 - Hyperlipidemia, unspecified Category: Medical Plan: [place] LDL goal less than 100. Followed by his PCP. Continue atorvastatin. Plan Time spent on chart review, documentation, interview and assessment Orders: Orders CA echo transthoracic complete Today R00.2 - Palpitations, R07.89 - Other chest pain Coding Level of Care Code New Pt Level 4 (12239) Complex EM visit Add On G2211 Diagnoses Chest discomfort R07.89 Palpitation R00.2 Epigastric discomfort R10.13 HTN (hypertension) I10 Hyperlipidemia E78.5 Time Spent (min) 28
--- OUTSIDE RECORDS SUMMARY | 2025-09-04 08:45 | XMS_ITS | Clinical Summary ---
Author Organization LL [address] [place] [address] [place] [phone] Phone Care Team Providers Care Camera Engineer Name Role Phone Wil Cao MD Primary Care Provider [phone] Allergies No known active allergies Encounters Date Type Department Care Team Description 07/26/2025 3:20 AM EDT - 07/26/2025 5:[address] [facility] Emergency [address] [place] [phone] Discharge Disposition: Home or Self Care 07/25/2025 9:43 PM EDT - 07/26/2025 2:[address] [facility] Emergency [address] [place] [phone] Discharge Disposition: Home or Self Care from Last 3 Months Surgical History Surgery Date Site/Laterality Comments OTHER [...] of organic origin Overweight(278.02) 02/15/2009 DX:Overweight (278.02) Asthma Family History Medical History Relation Name Comments [...] Sign Reading Time Taken Comments Blood Pressure 144/89 07/26/2025 3:39 AM EDT Pulse 70 07/26/2025 3:39 AM EDT Temperature 36.7 C (98 F) 07/26/2025 3:39 AM EDT Respiratory Rate 17 07/26/2025 3:39 AM EDT Oxygen Saturation 98% 07/26/2025 3:39 AM EDT Inhaled Oxygen Concentration - - Weight 127 kg (280 lb) 07/26/2025 3:39 AM EDT Height 188 cm (6' 2.02 ) 07/26/2025 3:39 AM EDT Body Mass Index 35.93 07/26/2025 3:39 AM EDT Plan of Treatment Health Maintenance Due Date Last Done Comments Colorectal Cancer Screening: Colonoscopy 1980 Hepatitis A Vaccines (1 of 2 - Risk 2-dose series) 1999 Hepatitis B Vaccines (1 of 3 - 19+ 3-dose series) 1999 HPV Vaccines (1 - 3-dose SCD M series) 2007 Cholesterol Screening (Lipid Panel) 09/28/2022 HIV Screening 09/28/2022 Hepatitis C Screening 09/28/2022 Social Influencers of Health Screening 09/28/2022 Depression Screening 10/26/2024 COVID-19 Vaccine (1 - 2024-2 5 season) 2025 Influenza Vaccine (#1) 2025 Hypertension/CHF/CAD Annual BMP Blood Test 07/25/2026 07/25/2025, 02/28/2025 DTaP,Tdap,and Td Vaccines (3 - Td [...] Procedure Name Priority Date/Time Associated Diagnosis Comments ECG ANNOTATED 07/27/2025 ECG 12-LEAD STAT 07/26/2025 3:25 AM EDT ECG ANNOTATED 07/26/2025 CBC WITH AUTO DIFFERENTIAL STAT 07/25/2025 10:09 PM EDT B-TYPE NATRIURETIC PEPTIDE STAT 07/25/2025 10:09 PM EDT MAGNESIUM STAT 07/25/2025 10:09 PM EDT LIPASE STAT 07/25/2025 10:09 PM EDT COMPREHENSIVE METABOLIC PANEL STAT 07/25/2025 10:09 PM EDT CBC AND DIFFERENTIAL STAT 07/25/2025 10:09 PM EDT TROPONIN I HIGH SENSITIVITY Timed 07/25/2025 10:09 PM EDT ECG 12-LEAD STAT 07/25/2025 9:53 PM EDT from Last 3 Months Results * ECG-Annotated (07/27/2025) Only the most recent of2 resultswithin the time period is included. us Provider Onbase ECG ORDERABLES Final Result * ECG 12 lead (07/26/2025 3:25 AM EDT) Only the most recent of2 resultswithin the time period is included. Ventricular Rate ECG 77 BPM GEMUSE Atrial Rate 77 BPM GEMUSE P-R Interval 156 ms GEMUSE QRS Duration 90 ms GEMUSE Q-T Interval 386 ms GEMUSE QTc 436 ms GEMUSE P Wave Viola 27 degrees GEMUSE R Viola 20 degrees GEMUSE T Viola 3 degrees GEMUSE ECG Interpretation Normal sinus rhythm Minimal voltage criteria for LVH, may be normal variant ( R in aVL ) Abnormal ECG When compared with ECG of 25-JUL-2025 21:53, (unconfirmed) No significant change was found Confirmed by CR STEPHEN ([id number]) on 07/27/2025 5:37:25 PM GEMUSE 07/26/2025 3:25 AM EDT 07/27/2025 5:37 PM EDT Ty Jordan MD ECG ORDERABLES Final Result GEMUSE * Troponin I high sensitivity (07/25/2025 10:09 PM EDT) Pathologist [facility] High Sensitivity Troponin I 6 <=79 ng/L LAB CHEMISTRY METHOD 07/25/2025 10:54 PM EDT [facility] Blood Venous blood specimen / Unknown Venipuncture / Unknown 07/25/2025 10:09 PM EDT 07/25/2025 10:28 PM EDT Narrative [facility] - 07/25/2025 10:54 PM EDT High levels of biotin in samples may falsely decrease hsTroponin values. Use caution when interpreting hsTroponin results in patients taking biotin who exhibit renal impairment (eGFR <60) or in patients taking more than 20 mg/day of biotin. Neli HERRERA LAB BLOOD ORDERABLES Fin al Result [facility] [address] [place] [address], [place] [phone] * (ABNORMAL) CBC auto differential (07/25/2025 10:09 PM EDT) [facility] WBC 5.8 4.8 - 10.8 K/mcL LAB HEMETOLOGY METHOD 07/25/2025 10:53 PM EDT [facility] RBC 5.40 4.50 - 5.50 M/mcL LAB HEMETOLOGY METHOD 07/25/2025 10:53 PM EDT [facility] Hemoglobin 15.4 13.5 - 17.5 g/dL LAB HEMETOLOGY METHOD 07/25/2025 10:53 PM EDT [facility] Hematocrit 46.0 42.0 - 54.0 % LAB HEMETOLOGY METHOD 07/25/2025 10:53 PM EDT [facility] MCV 84.7 79.0 - 98.0 FL LAB HEMETOLOGY METHOD 07/25/2025 10:53 PM EDT [facility] MCH 28.4 27.0 - 32.0 pcg LAB HEMETOLOGY METHOD 07/25/2025 10:53 PM EDT [facility] MCHC 33.5 32.0 - 37.0 g/dL LAB HEMETOLOGY METHOD 07/25/2025 10:53 PM EDT [facility] RDW 12.6 11.0 - 15.0 % LAB HEMETOLOGY METHOD 07/25/2025 10:[facility] Platelets 213 130 - 400 K/mcL LAB HEMETOLOGY METHOD 07/25/2025 10:53 PM [facility] MPV 11.2(H) 7.0 - 11.0 FL LAB HEMETOLOGY METHOD 07/25/2025 10:53 PM [facility] NRBC 0.0 <1.0 % LAB HEMETOLOGY METHOD 07/25/2025 10:53 PM [facility] NRBC Absolute 0.00 <0.10 K/mcL LAB HEMETOLOGY METHOD 07/25/2025 10:53 PM [facility] Neutrophils Relative 51.4 % LAB HEMETOLOGY METHOD 07/25/2025 10:53 PM [facility] Lymphocytes Relative 33.3 % LAB HEMETOLOGY METHOD 07/25/2025 10:53 PM [facility] Monocytes Relative 11.1 % LAB HEMETOLOGY METHOD 07/25/2025 10:53 PM [facility] Eosinophils Relative 3.5 % LAB HEMETOLOGY METHOD 07/25/2025 10:53 PM [facility] Basophils Relative 0.7 % LAB HEMETOLOGY METHOD 07/25/2025 10:53 PM [facility] Immature Granulocytes Relative 0.0 % LAB HEMETOLOGY METHOD 07/25/2025 10:53 PM [facility] Neutrophils Absolute 2.96 1.50 - 7.00 K/mcL LAB HEMETOLOGY METHOD 07/25/2025 10:53 PM [facility] Lymphocytes Absolute 1.92 1.00 - 5.00 K/mcL LAB HEMETOLOGY METHOD 07/25/2025 10:53 PM [facility] Monocytes Absolute 0.64 0.20 - 1.00 K/mcL LAB HEMETOLOGY METHOD 07/25/2025 10:53 PM EDT [facility] Eosinophils Absolute 0.20 0.00 - 0.50 K/mcL LAB HEMETOLOGY METHOD 07/25/2025 10:53 PM EDT [facility] Basophils Absolute 0.04 0.00 - 0.20 K/[facility] LAB HEMETOLOGY METHOD 07/25/2025 10:53 PM EDT [facility] Immature Granulocytes Absolute 0.00 0.00 - 0.03 K/[facility] LAB HEMETOLOGY METHOD 07/25/2025 10:53 PM EDT [facility] Blood Venous blood specimen / Unknown Venipuncture / Unknown 07/25/2025 10:09 PM EDT 07/25/2025 10:28 PM EDT Neli HERRERA LAB BLOOD ORDERABLES Fin al Result Performing Organization Address City/[facility]/ZIP Co de Phone Number [facility] [address] [place] [address], [place] [phone] * B-type natriuretic peptide (07/25/2025 10:09 PM EDT) Pathologist [facility] BNP 2 <=100 pcg/mL LAB CHEMISTRY METHOD 07/25/2025 11:02 PM EDT [facility] Blood Venous blood specimen / Unknown Venipuncture / Unknown 07/25/2025 10:09 PM EDT 07/25/2025 10:28 PM EDT Neli HERRERA LAB BLOOD ORDERABLES Fin al Result [facility] [address] [place] [address], [place] [phone] * Magnesium (07/25/2025 10:09 PM EDT) Magnesium 2.2 1.9 - 2.6 mg/dL LAB CHEMISTRY METHOD 07/25/2025 10:51 PM EDT [facility] Blood Venous blood specimen / Unknown Venipuncture / Unknown 07/25/2025 10:09 PM EDT 07/25/2025 10:28 PM EDT Neli HERRERA LAB BLOOD ORDERABLES Fin al Result Performing Organization Address City/[facility]/ZIP Co de Phone Number [facility] [address] [place] [address], [place] [phone] * Lipase (07/25/2025 10:09 PM EDT) Pathologist [facility] Lipase 57 13 - 75 unit/L LAB CHEMISTRY METHOD 07/25/2025 10:51 PM EDT [facility] Blood Venous blood specimen / Unknown Venipuncture / Unknown 07/25/2025 10:09 PM EDT 07/25/2025 10:28 PM EDT Neli HERRERA LAB BLOOD ORDERABLES Fin al Result Performing Organization Address City/[facility] Co de Phone Number [facility] [address] [place] [address], [place] [phone] * Comprehensive metabolic panel (07/25/2025 10:09 PM EDT) Pathologist [facility] Sodium 140 133 - 145 mmol/L LAB CHEMISTRY METHOD 07/25/2025 10:52 PM EDT [facility] Potassium 4.3 3.5 - 5.5 mmol/L LAB CHEMISTRY METHOD 07/25/2025 10:52 PM EDT [facility] Chloride 106 96 - 110 mmol/L LAB CHEMISTRY METHOD 07/25/2025 10:52 PM EDT [facility] CO2 27 21 - 32 mmol/L LAB CHEMISTRY METHOD 07/25/2025 10:52 PM EDT [facility] Anion Gap 7 3 - 11 LAB CHEMISTRY METHOD 07/25/2025 10:52 PM [facility] Glucose 96 70 - 100 mg/dL LAB CHEMISTRY METHOD 07/25/2025 10:52 PM [facility] BUN 23 5 - 25 mg/dL LAB CHEMISTRY METHOD 07/25/2025 10:52 PM [facility] Creatinine 1.26 0.70 - 1.30 mg/dL LAB CHEMISTRY METHOD 07/25/2025 10:52 PM [facility] eGFR 72 >=60 mL/min/1. 73m2 LAB CHEMISTRY METHOD 07/25/2025 10:52 PM [facility] Comment:Calculation based on the Chronic Kidney Disease Epidemiology Collaboration (CKD-EPI) equation refit without adjustment for race. BUN/Creatinine Ratio 18.3 LAB CHEMISTRY METHOD 07/25/2025 10:52 PM [facility] Calcium 8.8 8.5 - 10.5 mg/dL LAB CHEMISTRY METHOD 07/25/2025 10:52 PM [facility] AST (SGOT) 34 10 - 42 unit/L LAB CHEMISTRY METHOD 07/25/2025 10:52 PM [facility] ALT (SGPT) 59 10 - 60 unit/L LAB CHEMISTRY METHOD 07/25/2025 10:52 PM [facility] Alkaline Phosphatase 93 42 - 121 unit/L LAB CHEMISTRY METHOD 07/25/2025 10:52 PM [facility] Total Protein 7.1 6.0 - 8.0 g/dL LAB CHEMISTRY METHOD 07/25/2025 10:52 PM [facility] Albumin 3.7 3.2 - 5.0 g/dL LAB CHEMISTRY METHOD 07/25/2025 10:52 PM [facility] Total Bilirubin 0.4 0.0 - 1.4 mg/dL LAB CHEMISTRY METHOD 07/25/2025 10:52 PM [facility] Blood Venous blood specimen / Unknown Venipuncture / Unknown 07/25/2025 10:09 PM EDT 07/25/2025 10:28 PM EDT us Neli HERRERA LAB BLOOD ORDERABLES Fin al Result [facility] [address] [place] [address], from Last 3 Months Insurance [facility] Care Teams Camera Engineer Relationship Specialty Start Date End Date Wil Cao MD [address] [place] [address] PCP - General Internal Medicine 02/28/25
--- OUTSIDE RECORDS SUMMARY | 2025-09-04 08:45 | XMS_ITS | Encounter Summary ---
Author Organization [facility] Address [address] [facility] [address] [place] [address] Phone Care Team Providers Care Buoy Tender Name Role Phone Wil Cao MD Primary Care Provider [phone] Encounter Details Date Type Department Care Team (Late Contact Info) Description 03/05/2021 Orders Only [facility] [address] [facility] [address] [place] [phone] Provider, MD Wilbur Social History Tobacco Use [...] Department Care Team (Late Contact Info) Description 11/08/2025 9:30 AM EST Office Visit [facility] [address] [facility] [address] [place] [phone] Aiyana Callahan ARNP [address] [phone] documented as of this encounter Procedures Procedure Name Priority Date/Time Associated Diagnosis Comments EXT RESULT ENTRY Routine 10/30/2020 documented in this encounter Results * EXT RESULT ENTRY (10/30/2020) us Historical Provider LAB BLOOD ORDERABLES Kya l Result documented in this encounter Visit Diagnoses Not on filedocumented in this encounter Care Teams Buoy Tender Relationship Specialty Start Date End Date Wil Cao MD [address] [place] [address] PCP - General 11/05/20 documented as of this encounter
--- OUTSIDE RECORDS SUMMARY | 2025-09-04 08:45 | XMS_ITS | Clinical Summary ---
Author Organization [facility] Address [address] [phone] Phone Care Team Providers Care Release Engineer Name Role Phone Wil Cao MD Primary Care Provider Allergies No known active allergies Medications omeprazole (PriLOSEC) [address] capsule 1 (one) time each day 05/20/20 16 Active Multiple Vitamin (multivitamin) capsule Take 1 capsule by mouth 1 (one) time each day Active [place]-3 Fatty Acids (Fish Oil) 1000 MG capsule delayed-release Take 1 tablet by mouth 1 (one) time each day Active Xyosted 75 MG/0.5ML solution auto-injector Inject 75 mg under the skin 1 (one) time per week 08/29/20 24 Active Blood Pressure Monitoring (Omron 3 Series BP Monitor) deviceIndication s:Essential hypertension 1 Device 1 (one) time each day 1 each 07/13/20 25 Active atorvastatin (LIPITOR) 20 MG tablet Take 20 mg by mouth 1 (one) time each day 01/16/20 25 Active amLODIPine-benaz epril (Lotrel) 10-20 MG per capsuleIndicatio ns:Essential hypertension Take 1 capsule by mouth 1 (one) time each day 90 capsule 3 08/08/20 25 026 Active alfuzosin (UROXATRAL) 10 MG 24 hr tablet Take 10 mg by mouth in the morning. 08/29/20 24 025 Discontinued(Me d List Maintenance) amLODIPine-benaz epril (LOTREL 5-10) 5-10 MG per capsuleIndicatio ns:Essential hypertension TAKE ONE CAPSULE BY MOUTH EVERY DAY 90 capsule 3 02/15/20 25 025 Discontinued Active Problems Problem Noted Date Diagnosed Date Esophagitis, not otherwise specified 01/14/2023 Steatotic liver disease 01/14/2023 Severe obesity 01/14/2023 Perirectal abscess 01/14/2023 [...] Encounters Date Type Department Care Team Description 08/08/2025 8:45 AM EDT Office Visit [facility] [address] [phone] Aiyana Callahan ARNP Essential hypertension (Primary Dx) 07/13/2025 3:30 PM EDT Office Visit [facility] [address] [phone] Aiyana Callahan ARNP Essential hypertension (Primary Dx) 07/12/2025 Documentation Only [facility] [address] [phone] Danita Sanchez MA from Last 3 Months [...] Sign Reading Time Taken Comments Blood Pressure 130/88 08/08/2025 8:56 AM EDT Pulse 73 08/08/2025 8:56 AM EDT Temperature - - Respiratory Rate - - Oxygen Saturation 95% 08/08/2025 8:56 AM EDT Inhaled Oxygen Concentration - - Weight 129 kg (284 lb 3.2 oz) 08/08/2025 8:56 AM EDT Height 188 cm (6' 2 ) 03/16/2019 12:00 PM EDT Body Mass Index 36.49 03/16/2019 12:00 PM EDT Plan of Treatment Upcoming Encounters Date Type Department Care Team (Late st Contact Info) Description 11/08/2025 9:30 AM EST [facility] [address] [phone] Aiyana Callahan ARNP [address] [phone] Health Maintenance Due Date Last Done Comments Hepatitis B Vaccine (1 of 3 - 19+ 3-dose series) 05/30 Pneumococcal Vaccine: Peds ( 0 to 5 Years) and At-Risk Patients (6 to 49 Years) (1 of 2 - PCV) 1999 Influenza Vaccine (#1) 2025 Procedures Procedure Name Priority Date/Time Associated Diagnosis Comments BASIC METABOLIC PANEL Routine 08/23/2025 8:57 AM EDT Essential hypertension PROTEIN / CREATININE RATIO, URINE Routine 08/23/2025 8:56 AM EDT Essential hypertension URINE ALBUMIN / CREATININE RATIO Routine 08/23/2025 8:56 AM EDT Essential hypertension from Last 3 Months Results * (ABNORMAL) Basic metabolic panel (08/23/2025 8:57 AM EDT) Glucose 107(H) 70 - 99 mg/dL [facility] BUN 13 6 - 24 mg/dL [facility] Creatinine 0.88 0.76 - 1.27 mg/dL [facility] eGFR CKD-EPI CR 2020 108 >59 mL/min/1.7 3 [facility] BUN/Creatinine Ratio 15 9 - 20 [facility] Sodium 142 134 - 144 mmol/L [facility] Potassium 4.7 3.5 - 5.2 mmol/L [facility] Chloride 103 96 - 106 mmol/L [facility] Bicarbonate (CO2) 24 20 - 29 mmol/L [facility] Calcium 9.7 8.7 - 10.2 mg/dL [facility] Blood Venous blood / Unknown 08/23/2025 8:57 AM EDT 08/23/2025 us Aiyana Callahan [facility] BLOOD ORDERABLES Final Result [facility] [address] [place] [address] * Urine Protein / creatinine ratio (08/23/2025 8:56 AM EDT) Creatinine, Ur 164.5 Not Estab. mg/dL [facility] Protein, Ur 15.2 Not Estab. mg/dL [facility] Urine Protein/Creatin ine Ratio 92 0 - 200 mg/g creat [facility] Urine Urine specimen obtained by clean catch procedure / Unknown 08/23/2025 8:56 AM EDT 08/23/2025 Aiyana [facility] LAB URINE ORDERABLES Final Result Performing Organization Address City/[facility]/ZIP Co de Phone Number [facility] [address] [place] [address] * Urine Albumin / Creatinine Ratio (08/23/2025 8:56 AM EDT) Albumin, Urine 4.1 Not Estab. ug/mL [facility] Albumin/Creatin ine Ratio 2 0 - 29 mg/g creat [facility] Comment: Normal: 0 - 29 Moderately increased: 30 - 300 Severely increased: >300 Urine Urine specimen obtained by clean catch procedure / Unknown 08/23/2025 8:56 AM EDT 08/23/2025 Aiyana [facility] LAB URINE ORDERABLES Final Result Performing Organization Address City/[facility] Co de Phone Number [facility] [employer] [facility] [address] [place] [address] from Last 3 Months Insurance [facility] Care Teams Release Engineer Relationship Specialty Start Date End Date Wil Cao MD [address] [place] [phone] PCP - General 11/05/20
== END 2025-09-04 09:14 | disposition home or self-care (01) ==
LOC: HO.HCS 08:24
PROVIDERS: PCP Internal Medicine; Visit Provider Nurse Practitioner Family
DX: R07.89 Other chest pain (principal); R00.2 Palpitations; R10.13 Epigastric pain; I10 Essential (primary) hypertension; E78.5 Hyperlipidemia, unspecified
CPT/HCPCS: 99204

== ENCOUNTER → 2025-10-13 08:46 | Outpatient (REF) | payer BC, SELFPAY ==
--- OUTSIDE RECORDS SUMMARY | 2025-10-13 09:01 | XMS_ITS | Clinical Summary ---
Author Organization LL [address] [place] [address] [place] [phone] Phone Care Team Providers Care Social Media Designer Name Role Phone Wil Cao MD Primary Care Provider [phone] Allergies No known active allergies Encounters Date Type Department Care Team Description 09/29/2025 8:14 PM EST - 09/30/2025 12:44 AM EST [facility] [address] [place] [address] Discharge Disposition: Left Against Medical Advice 07/26/2025 3:20 AM EDT - 07/26/2025 5:13 AM EDT [facility] [address] [place] [address] Discharge Disposition: Home or Self Care 07/25/2025 9:43 PM EDT - 07/26/2025 2:19 AM EDT [facility] [address] [place] [address] Discharge Disposition: Home or Self Care from Last 3 Months Surgical History Surgery Date Site/Laterality Comments OTHER SURGICAL HISTORY 2005 apprx PROCEDURE: [place] CURTG/CAUT ANAL FISSURE W/DILAT SPHNCTR SPX 1ST [...] organic origin Overweight(278.02) 02/15/2009 DX:Overweight (278.02) Asthma Hypertension Hyperlipemia Family History Medical History Relation Name Comments [...] Former Alcohol Use Standard Drinks/Week Comments Yes 1 (1 standard drink = 0.6 oz pur e alcohol) Sex and Gender Information Value Date Recorded Sex Assigned at Male 02/28/2025 4:43 PM EDT Legal Sex Male 1:57 AM EST Gender Identity Male 02/28/2025 4:43 PM EDT Sexual Orientation Straight 02/28/2025 4: 43 PM EDT Last Filed Vital Signs Vital Sign Reading Time Taken Comments Blood Pressure 140/82 09/29/2025 8:16 PM EST Pulse 130 09/29/2025 8:16 PM EST Temperature 36.4 C (97.5 F) 09/29/2025 8:16 PM EST Respiratory Rate 20 09/29/2025 8:16 PM EST Oxygen Saturation 98% 09/29/2025 8:16 PM EST Inhaled Oxygen Concentration - - Weight 129 kg (285 lb) 09/29/2025 8:16 PM EST Height 188 cm (6' 2 ) 09/29/2025 8:16 PM EST Body Mass Index 36.59 09/29/2025 8:16 PM EST Plan of Treatment Health Maintenance Due Date Last Done Comments Colorectal Cancer Screening: Colonoscopy 1980 Hepatitis A Vaccines (1 of 2 - Risk 2-dose series) 1999 Hepatitis B Vaccines (1 of 3 - 19+ 3-dose series) 1999 HPV Vaccines (1 - 3-dose SCDM series) 2007 Cholesterol Screening (Lipid Panel) 09/28/2022 HIV Screening 09/28/2022 Hepatitis C Screening 09/28/2022 Social Influencers of Health Screening 09/28/2022 Depression Screening 10/26/2024 COVID-19 Vaccine ( - season) 2025 Influenza Vaccine (#1) 2025 Hypertension/CHF/CAD Annual BMP Blood Test 09/29/2026 09/29/2025, 08/23/2025, 07/25/2025, Additional history exists DTaP,Tdap,and Td Vaccines (3 - Td or [...] 49 Years) Aged Out No longer eligible based on patient's age to complete this topic RSV Immunization Patients Under 20 months Aged Out No longer eligible based on patient's age to complete this topic Varicella Vaccines Aged Out No longer eligible based on patient's age to complete this topic Procedures Procedure Name Priority Date/Time Associated Diagnosis Comments ECG ANNOTATED 10/02/2025 XR CHEST 2 VIEWS STAT 09/29/2025 10:0 3 PM EST CBC WITH AUTO DIFFERENTIAL STAT 09/29/2025 8:32 PM EST B-TYPE NATRIURETIC PEPTIDE STAT 09/29/2025 8:32 PM EST MAGNESIUM STAT 09/29/2025 8:32 PM EST LIPASE STAT 09/29/2025 8:32 PM EST COMPREHENSIVE METABOLIC PANEL STAT 09/29/2025 8:32 PM EST CBC AND DIFFERENTIAL STAT 09/29/2025 8:32 PM EST TROPONIN I HIGH SENSITIVITY Timed 09/29/2025 8:32 PM EST ECG 12-LEAD STAT 09/29/2025 8:24 PM EST ECG ANNOTATED 07/27/2025 ECG 12-LEAD STAT 07/26/2025 [...] from Last 3 Months Results * ECG-Annotated (10/02/2025) Only the most recent of3 resultswithin the time period is included. us Provider Onbase MD ECG ORDERABLES Final Result * XR Chest 2 Views (09/29/2025 10:03 PM EST) Anatomical Region Laterality Modality Body Radiographic Kelli ging 09/30/2025 12:4 3 PM EST Impressions 09/30/2025 12:43 PM EST FINDINGS/IMPRESSION: Lungs are clear. No pleural effusion or pneumothorax. Cardiac silhouette and bones are normal. -------- FINAL REPORT -------- Dictated By: RYAN DEL TORO Dictated Date: 09/30/2025 12:43 ET Assigned Physician: RYAN DEL TORO Reviewed and Electronically Signed By: RYAN DEL TORO Signed Date: 09/30/2025 12:43 ET Workstation ID: [id number] Transcribed By: Self Edit Transcribed Date: 09/30/2025 12:43 ET Narrative 09/30/2025 12:43 PM EST XR CHEST 2 VIEWS INDICATION: Pain TECHNIQUE: XR CHEST 2 VIEWS COMPARISON: 02/28/2025 Procedure Note Ryan Del Toro MD - 09/30/2025 XR CHEST 2 VIEWS INDICATION: Pain TECHNIQUE: XR CHEST 2 VIEWS COMPARISON: 02/28/2025 IMPRESSION: FINDINGS/IMPRESSION: Lungs are clear. No pleural effusion orpneumothorax. Cardiac silhouette and bones are normal. -------- FINAL REPORT -------- Dictated By: RYAN DEL TORO Dictated Date: 09/30/2025 12:43 ET Assigned Physician: RYAN DEL TORO Reviewed and Electronically Signed By: RYAN DEL TORO Signed Date: 09/30/2025 12:43 ET Workstation ID: [id number] Transcribed By: Self Edit Transcribed Date: 09/30/2025 12:43 ET us Yeimy Hathaway NP IMG XR PROCEDURES Final R esult * Troponin I high sensitivity (09/29/2025 8:32 PM EST) Only the most recent of2 resultswithin the time period is included. High Sensitivity Troponin I 3 <=53 ng/L 09/29/2025 9:47 PM EST [facility] Blood Venous blood specimen / Unknown Venipuncture / Unknown 09/29/2025 8:32 PM EST 09/29/2025 9:19 PM EST us Yeimy Hathaway NP LAB BLOOD ORDERABLES Kya page Result [facility] [address] [place] [address], * CBC auto differential (09/29/2025 8:32 PM EST) Only the most recent of2 resultswithin the time period is included. WBC 7.2 4.8 - 10.8 K/mcL LAB HEMETOLOGY METHOD 09/29/2025 9:27 PM [facility] RBC 5.20 4.50 - 5.50 M/mcL LAB HEMETOLOGY METHOD 09/29/2025 9:27 PM [facility] Hemoglobin 15.0 13.5 - 17.5 g/dL LAB HEMETOLOGY METHOD 09/29/2025 9:27 PM [facility] Hematocrit 44.1 42.0 - 54.0 % LAB HEMETOLOGY METHOD 09/29/2025 9:27 PM [facility] MCV 85.0 79.0 - 98.0 FL LAB HEMETOLOGY METHOD 09/29/2025 9:27 PM [facility] MCH 28.9 27.0 - 32.0 pcg LAB HEMETOLOGY METHOD 09/29/2025 9:27 PM [facility] MCHC 34.0 32.0 - 37.0 g/dL LAB HEMETOLOGY METHOD 09/29/2025 9:27 PM [facility] RDW 13.6 11.0 - 15.0 % LAB HEMETOLOGY METHOD 09/29/2025 9:27 PM [facility] Platelets 226 130 - 400 K/mcL LAB HEMETOLOGY METHOD 09/29/2025 9:27 PM [facility] MPV 10.8 7.0 - 11.0 FL LAB HEMETOLOGY METHOD 09/29/2025 9:27 PM [facility] NRBC 0.0 <1.0 % LAB HEMETOLOGY METHOD 09/29/2025 9:27 PM [facility] NRBC Absolute 0.00 <0.10 K/mcL LAB HEMETOLOGY METHOD 09/29/2025 9:27 PM [facility] Neutrophils Relative 58.6 % LAB HEMETOLOGY METHOD 09/29/2025 9:27 PM [facility] Lymphocytes Relative 26.4 % LAB HEMETOLOGY METHOD 09/29/2025 9:27 PM [facility] Monocytes Relative 11.6 % LAB HEMETOLOGY METHOD 09/29/2025 9:27 PM [facility] Eosinophils Relative 2.5 % LAB HEMETOLOGY METHOD 09/29/2025 9:27 PM [facility] Basophils Relative 0.6 % LAB HEMETOLOGY METHOD 09/29/2025 9:27 PM [facility] Immature Granulocytes Relative 0.3 % LAB HEMETOLOGY METHOD 09/29/2025 9:27 PM [facility] Neutrophils Absolute 4.20 1.50 - 7.00 K/mcL LAB HEMETOLOGY METHOD 09/29/2025 9:27 PM [facility] Lymphocytes Absolute 1.89 1.00 - 5.00 K/mcL LAB HEMETOLOGY METHOD 09/29/2025 9:27 PM [facility] Monocytes Absolute 0.83 0.20 - 1.00 K/mcL LAB HEMETOLOGY METHOD 09/29/2025 9:27 PM [facility] Eosinophils Absolute 0.18 0.00 - 0.50 K/mcL LAB HEMETOLOGY METHOD 09/29/2025 9:27 PM [facility] Basophils Absolute 0.04 0.00 - 0.20 K/mcL LAB HEMETOLOGY METHOD 09/29/2025 9:27 PM [facility] Immature Granulocytes Absolute 0.02 0.00 - 0.03 K/mcL LAB HEMETOLOGY METHOD 09/29/2025 9:27 PM EST [facility] Blood Venous blood specimen / Unknown Venipuncture / Unknown 09/29/2025 8:32 PM EST 09/29/2025 9:19 PM EST Yeimy Hathaway CANDY SUPERVISOR LAB BLOOD ORDERABLES Kya l Result [facility] [address] [place] [address], * B-type natriuretic peptide (09/29/2025 8:32 PM EST) Only the most recent of2 resultswithin the time period is included. BNP 5 <=100 pcg/mL 09/29/2025 9:46 PM EST [facility] Blood Venous blood specimen / Unknown Venipuncture / Unknown 09/29/2025 8:32 PM EST 09/29/2025 9:20 PM EST Narrative [facility] - 09/29/2025 9:46 PM EST Over the counter supplements containing high doses of biotin may interfere with this assay. If interference is suspected, patients shoud be retested after refraining from biotin supplements for 72 hours. Yeimy Hathaway CANDY SUPERVISOR LAB BLOOD ORDERABLES Kya l Result [facility] [address] [place] [address], * (ABNORMAL) Magnesium (09/29/2025 8:32 PM EST) Only the most recent of2 resultswithin the time period is included. Magnesium 1.8(L) 1.9 - 2.6 mg/dL 09/29/2025 9:54 PM EST [facility] Blood Venous blood specimen / Unknown Venipuncture / Unknown 09/29/2025 8:32 PM EST 09/29/2025 9:19 PM EST Yeimy Martinezlela Gillk CANDY SUPERVISOR LAB BLOOD ORDERABLES Kya l Result Performing Organization Address [facility] Co de Phone Number [facility] [address] [place] [address], [place] [phone] * Lipase (09/29/2025 8:32 PM EST) Only the most recent of2 resultswithin the time period is included. Lipase 53 12 - 53 unit/L 09/29/2025 9:54 PM [facility] Blood Venous blood specimen / Unknown Venipuncture / Unknown 09/29/2025 8:32 PM EST 09/29/2025 9:19 PM EST Yeimy Elena Rivas CANDY SUPERVISOR LAB BLOOD ORDERABLES Kya l Result Performing Organization Address [facility] Co de Phone Number [facility] [address] [place] [address], [place] [phone] * (ABNORMAL) Comprehensive metabolic panel (09/29/2025 8:32 PM EST) Only the most recent of2 resultswithin the time period is included. Sodium 140 133 - 145 mmol/L 09/29/2025 9:54 PM [facility] Potassium 4.0 3.5 - 5.5 mmol/L 09/29/2025 9:54 PM [facility] Chloride 103 96 - 110 mmol/L 09/29/2025 9:54 PM [facility] CO2 24 21 - 32 mmol/L 09/29/2025 9:54 PM [facility] Anion Gap 13(H) 3 - 11 09/29/2025 9:54 PM [facility] Glucose 102(H) 70 - 100 mg/dL 09/29/2025 9:54 PM [facility] BUN 20 5 - 25 mg/dL 09/29/2025 9:54 PM [facility] Creatinine 0.96 0.70 - 1.30 mg/dL 09/29/2025 9:54 PM [facility] eGFR 99 >=60 mL/min/1. 73m2 09/29/2025 9:54 PM [facility] Comment:Calculation based on the Chronic Kidney Disease Epidemiology Collaboration (CKD-EPI) equation refit without adjustment for race. BUN/Creatinine Ratio 20.8 09/29/2025 9:54 PM [facility] Calcium 9.5 8.5 - 10.5 mg/dL 09/29/2025 9:54 PM [facility] AST (SGOT) 35 10 - 42 unit/L 09/29/2025 9:54 PM [facility] ALT (SGPT) 72(H) 10 - 60 unit/L 09/29/2025 9:54 PM [facility] Alkaline Phosphatase 90 42 - 121 unit/L 09/29/2025 9:54 PM [facility] Total Protein 7.0 6.0 - 8.0 g/dL 09/29/2025 9:54 PM [facility] Albumin 4.5 3.2 - 5.0 g/dL 09/29/2025 9:54 PM [facility] Total Bilirubin 0.8 0.0 - 1.4 mg/dL 09/29/2025 9:54 PM [facility] Blood Venous blood specimen / Unknown Venipuncture / Unknown 09/29/2025 8:32 PM EST 09/29/2025 9:19 PM EST us Yeimy Hathaway CANDY SUPERVISOR LAB BLOOD ORDERABLES Kya l Result [facility] [address] [place] [address], * ECG 12 lead (09/29/2025 8:24 PM EST) Only the most recent of3 resultswithin the time period is included. Ventricular Rate ECG 119 BPM GEMUSE Atrial Rate 119 BPM GEMUSE P-R Interval 156 ms GEMUSE QRS Duration 80 ms GEMUSE Q-T Interval 302 ms GEMUSE QTc 424 ms GEMUSE P Wave [place] 43 degrees GEMUSE R [place] 48 degrees GEMUSE T [place] 14 degrees GEMUSE ECG Interpretation Sinus tachycardia Otherwise normal ECG When compared with ECG of 26-JUL-2025 03:25, Vent. rate has increased BY 42 BPM Borderline criteria for Inferior infarct are no longer Present Confirmed by Randy MARCH JOHN ([id number]) on 09/30/2025 2:56:04 PM GEMUSE 09/29/2025 8:24 PM EST 09/30/2025 2:56 PM EST Yeimy Hathaway CANDY SUPERVISOR ECG ORDERABLES Final Res ult GEMUSE from Last 3 Months Insurance [facility] Care Teams Social Media Designer Relationship Specialty Start Date End Date Wil Cao MD [facility] [place] [address] PCP - General Internal Medicine 02/28/25
--- OUTSIDE RECORDS SUMMARY | 2025-10-13 09:01 | XMS_ITS | Clinical Summary ---
Author Organization [facility] Address [address] [address] Phone Care Team Providers Care Charging Plug Placer Name Role Phone Wil Cao MD Primary Care Provider Allergies No known active allergies Medications omeprazole (PriLOSEC) [address] capsule 1 (one) time each day 6 Active Multiple Vitamin (multivitamin) capsule Take 1 capsule by mouth 1 (one) time each day Active [place]-3 Fatty Acids (Fish Oil) 1000 MG capsule delayed-release Take 1 tablet by mouth 1 (one) time each day Active Xyosted 75 MG/0.5ML solution auto-injector Inject 75 mg under the skin 1 (one) time per week 4 Active Blood Pressure Monitoring (Omron 3 Series BP Monitor) deviceIndications :Essential hypertension 1 Device 1 (one) time each day 1 each 5 Active atorvastatin (LIPITOR) 20 MG tablet Take 20 mg by mouth 1 (one) time each day 5 Active amLODIPine-benaze pril (Lotrel) 10-20 MG per capsuleIndication s:Essential hypertension Take 1 capsule by mouth 1 (one) time each day 90 capsule 3 5 08/08/20 26 Active Active Problems Problem Noted Date Diagnosed [...] Office Visit [facility] [address] [address] Aiyana Callahan ARNP Essential hypertension (Primary Dx) from Last 3 Months Immunizations Immunization Administration [...] [facility] [address] [address] [place] AiyanaBRIGETTE [address] [address] Health Maintenance Due Date Last [...] Glucose 107(H) 70 - 99 mg/dL [facility] BUN 13 6 - 24 mg/dL [facility] Creatinine 0.88 0.76 - 1.27 mg/dL [facility] eGFR CKD-EPI CR 2020 108 >59 mL/min/1.7 3 [facility] BUN/Creatinine Ratio 15 9 - 20 [facility] Sodium 142 134 - 144 mmol/L [facility] Potassium 4.7 3.5 - 5.2 mmol/L [facility] Chloride 103 96 - 106 mmol/L [facility] Bicarbonate (CO2) 24 20 - 29 mmol/L [facility] Calcium 9.7 8.7 - 10.2 mg/dL [facility] Blood Venous blood / Unknown 08/23/2025 8:57 AM EDT 08/23/2025 Aiyana [facility] LAB BLOOD ORDERABLES Final Result Performing Organization Address City/[facility]/ZIP Co de Phone Number [facility] [address] [place] [address] * Urine Protein / creatinine ratio (08/23/2025 8:56 AM EDT) Creatinine, Ur 164.5 Not Estab. mg/dL [facility] Protein, Ur 15.2 Not Estab. mg/dL [facility] Urine Protein/Creatin ine Ratio 92 0 - 200 mg/g creat [facility] Urine Urine specimen obtained by clean catch procedure / Unknown 08/23/2025 8:56 AM EDT 08/23/2025 [facility]INE ORDERABLES Final Result Performing Organization Address City[facility]/ZIP Co de Phone Number [facility] [address] [place] [address] * Urine Albumin / Creatinine Ratio (08/23/2025 8:56 AM EDT) Albumin, Urine 4.1 Not Estab. ug/mL [facility] Albumin/Creatin ine Ratio 2 0 - 29 mg/g creat [facility] Comment: Normal: 0 - 29 Moderately increased: 30 - 300 Severely increased: >300 Urine Urine specimen obtained by clean catch procedure / Unknown 08/23/2025 8:56 AM EDT 08/23/2025 Aiyana [place] [facility] LAB URINE ORDERABLES Final Result [facility] [address] [place] [phone] from Last 3 Months Insurance Care Teams Charging Plug Placer Relationship Specialty Start Date End Date Wil Cao MD [address] [place] [address] PCP - General 11/05/20
--- OUTSIDE RECORDS SUMMARY | 2025-10-13 09:01 | XMS_ITS | Encounter Summary ---
Author Organization [facility] Address [address] [facility] [address] [place] [address] Phone Care Team Providers Care Second Baller Name Role Phone Wil Cao MD Primary Care Provider [phone] Encounter Details Date Type Department Care Team (Late Contact Info) Description 03/05/2021 Orders Only [facility] [address] [facility] [address] [place] [id number] Provider, MD Wilbur Social History Tobacco Use [...] Visit [facility] [address] [facility] [address] [place] [phone] Aiyana Callahan ARNP [address] [address] documented as of this encounter Procedures Procedure Name Priority Date/Time Associated Diagnosis Comments EXT RESULT ENTRY Routine 10/30/2020 documented in this encounter Results * EXT RESULT ENTRY (10/30/2020) us Historical Provider LAB BLOOD ORDERABLES Kya l Result documented in this encounter Visit Diagnoses Not on filedocumented in this encounter Care Teams Second Baller Relationship Specialty Start Date End Date Wil Cao MD [address] [place] [address] PCP - General 11/05/20 documented as of this encounter
== END ==
LOC: HO.CARD 08:46
PROVIDERS: Visit Provider Nurse Practitioner Family
DX: R07.89 Other chest pain (principal); R00.2 Palpitations
CPT/HCPCS: 93306; Q9957

== ENCOUNTER → 2025-10-13 08:49 | Outpatient (BNV) | payer BC, SELFPAY | PROVIDERS: Visit Provider Internal Medicine | DX: R07.89 Other chest pain (principal) | CPT/HCPCS: 93306 ==

== ENCOUNTER 2025-10-17 08:32 | Outpatient (AMB) | payer BC, SELFPAY ==
--- OUTSIDE RECORDS SUMMARY | 2025-10-15 23:59 | XMS_ITS | Continuity of Care Document ---
Author Organization [facility] Address [address] [place] [address]- Care Team Providers Care Novelty Twister Tender Name Role Phone Wil Cao MD Primary Care Physician [id number]): [facility]/15/[facility] - 10/15/25 [facility] [address] [place] [address]- Encounter Type: Triage Allergies, Adverse Reactions, Alerts [...] mg oral tablet 1 tablet, By Mouth, Every other day, # 90 tablet, 3 Refills, Maintenance, 06/10/25 [...] Total Allowed Fills: 1 Fills Dispensed: 0 LORazepam 0.5 mg oral tablet 1-2 tablet, By Mouth, Every 8 hours, # 15 tablet, 0 Refills, Maintenance, 07/21/25 2:12:00 PM EDT, [id number], Partial fill upon patient request [...] Total Allowed Fills: 1 Fills Dispensed: 0 [place]-3 oral capsule 0 Refills, Maintenance, 08/26/23 1:23:00 [...] Total Allowed Fills: 1 Fills Dispensed: 0 sertraline 50 mg oral tablet See Instructions, 0.5 tablet By Mouth Daily for 10 days, then 1 tab PO QD, # 30 tablet, 1 Refills, Maintenance, 09/29/25 9:17:00 AM EST, [id number], Partial fill upon patient request if the prescription is for a schedule II opioid drug., 188, cm, 09/29/25 8:37:00 EST, Height, 130.9, kg, 09/29/25 8:37:00 EST, Dry Weight Start Date: 09/29/25 Status: Ordered Medication Dispense Status: Completed Quantity: 30.0 Unit: tablet Total Allowed Fills: 2 Fills Dispensed: 0 Testosterone Cypionate 200 mg/mL [...] Team Personnel Name: Wil Cao MD Position: [facility] Physician - Primary Care Member Role: PCP Address: [address] [place] [address] Telecom: Care Team Related Persons Name: SANJAY DAVILA Insurance Providers Guarantor name: JEROME DAVILA Avvo Plan Information #: 1 Payer: [employer] [facility] Payer Identifier: NA Member Number: [id number] Group Number: [id number] Subscriber Identifier: NA Relationship to Subscriber: self Coverage Type: NA Coverage Verification Date: NA Telecom: NA Address:
--- OUTSIDE RECORDS SUMMARY | 2025-10-15 23:59 | XMS_ITS | Continuity of Care Document ---
Author Organization [facility] Address [address] [place] [address]- Care Team Providers Care Director Cardiac Name Role Phone Wil Cao MD [id number]/15[facility] - 10/15/25 [facility] [address] [place] [address]- Encounter Type: Triage Allergies, Adverse Reactions, Alerts [...] 0 Refills, Maintenance, 07/21/25 2:12:00 PM EDT, [id number], Partial fill upon patient request [...] Total Allowed Fills: 1 Fills Dispensed: 0 [place]-3 oral capsule 0 Refills, Maintenance, 08/26/23 1:23:00 [...] 1 Refills, Maintenance, 09/29/25 9:17:00 AM EST, [id number], Partial fill upon patient request [...] Team Personnel Name: Wil Cao MD Position: [facility] Physician - Primary Care Member Role: PCP Address: [address] [place] [address] Telecom: Care Team Related Persons Name: SANJAY DAVILA Insurance Providers Guarantor name: JEROME DAVILA Mirego Plan Information #: 1 Payer: [employer] [facility] Payer Identifier: NA Member Number: [id number] Group Number: [id number] Subscriber Identifier: NA Relationship to Subscriber: self Coverage Type: NA Coverage Verification Date: NA Telecom: NA Address:
[2025-10-17 08:34] VITALS: BP 124/90; PULSE 74; BMI 40.4
--- NOTE | 2025-10-17 08:34 | A.OFFVIS_ITS ---
Vital Signs 10/17/25 08:34 Height 6 ft Weight 297 lb 9.985 oz BMI 40.4 BP 124/90 H Blood Pressure Location Lt brachial Position Sitting Pulse 74 Pulse Source Pulse Oximeter Intake Visit Reasons: 4-6wk/echo Shipyard Painter Required: No Allergies No Known Allergies Allergy (Verified 10/17/25 08:36) Medication List - Last Reconciled 10/17/25 by Cristy Soni, ENGINEERING AGENT-C amlodipine-benazepril 5-10 mg 1 cap PO DAILY atorvastatin 20 mg PO DAILY sertraline (Zoloft) 20 mg PO DAILY sertraline 50 mg PO DAILY tadalafil 20 mg PO testosterone enanthate (Xyosted) mg subcut HPI HPI 4-6wk/echo: Details: Alex is a 45-year-old male with past medical history of obesity, hypertension, hyperlipidemia, reported prediabetes who was recently seen in the emergency room for chest discomfort. He ruled out for ACS and was referred to Cardiology in consultation. An exercise stress test was normal. A Holter monitor was done, results not available. Echocardiogram completed and results not available at this time. Today He reports his symptoms are much improved and believes they may be gastrointestinal in origin. He exercises daily at the gym and has been increasing his intensity without experiencing exertional chest pressure or heaviness. He has multiple lipomas, confirmed by a prior mammogram, and an ultrasound of a neck lump showed a normal lymph node His primary concern is tachycardia triggered by alcohol consumption, where even one or two beers can cause his heart rate to increase to 160-170 bpm at rest. He describes the rhythm as rapid and regular, not irregular. He recently visited an emergency department for a similar episode after drinking alcohol, where an EKG, chest x-ray, and bloodwork were normal, and he was diagnosed with tachycardia. . [facility] Medical History HTN (hypertension) Hyperlipidemia Review of Systems Const All systems reviewed & are unremarkable except as noted in HPI and below ENT Denies dizziness Card Denies chest pain, Denies chest pain at rest, Denies chest pain with activity, Denies rapid heart rate, Denies pedal edema, Denies edema, Denies leg edema, Denies lightheadedness, Denies palpitations, Denies dyspnea, Denies dyspnea on exertion and Denies orthopnea Resp Denies cough, Denies dyspnea and Denies dyspnea on exertion GI Denies hematochezia and Denies change in stool character Musc Denies abnormal gait, Reports limited range of motion, Reports muscle cramps, Denies muscle weakness, Denies numbness, Denies radiating pain into limb, Denies stiffness and Denies tingling Neuro Denies abnormal gait, Denies dizziness, Denies numbness and Denies tingling Endo Denies palpitations Physical Exam Vital Signs: Last Vital Signs Pulse 74 10/17/25 08:34 BP 124/90 H 10/17/25 08:34 BMI result Body Mass Index 40.4 Const General: cooperative, healthy appearing, comfortable and no acute distress Orientation/consciousness: patient oriented x3 Neck Neck: Yes normal visual inspection Resp Effort & Inspection: normal respiratory effort Auscultation: clear to auscultation bilaterally, no rales, no rhonchi and no wheezes Cardio Rate: regular rate Rhythm: regular rhythm Heart sounds: S1 normal heart sound present, S2 normal heart sound present, no gallops, no murmurs and no rubs Neuro General: patient oriented x3 Extrem General: Yes normal to inspection, No no pedal edema and No calf tenderness Psych Appearance: grossly normal Mental Status: mental status grossly normal Speech and movement: Normal speech and movement present Assessment & Plan Assessment & Plan (1) Chest discomfort: Code(s): R07.89 - Other chest pain Category: Medical Plan: Atypical sounding chest discomfort. ER evaluation and ruled out for ACS. EKG at that time showing sinus tachycardia, rate 115. [facility] done at [facility] 08[facility]01[facility]2025 showing good exercise tolerance, no EKG changes, hypertensive response with systolic 230-240, intermittent infrequent PVCs. Cardiac risk factors of hypertension, hyperlipidemia, obesity, prediabetes. His discomfort sounded more musculoskeletal in nature with soreness at the xiphoid process and into left shoulder. This symptom has improved with time. Echocardiogram is still pending. Plan to call him with results. Cardiology follow-up as needed unless echo shows significant findings. (2) Palpitation: Code(s): R00.2 - Palpitations Category: Medical Plan: He reports elevated heart rate in the setting of alcohol use. Echo pending. Holter results pending. He does report having ER evaluation when heart rate was elevated and he was diagnosed with tachycardia. Recommend he avoid alcohol use and maintain good hydration. (3) Epigastric discomfort: Code(s): R10.13 - Epigastric pain Category: Medical Plan: As above, soreness in the region of xiphoid process. He reports having recent upper endoscopy without abnormal findings. (4) HTN (hypertension): Code(s): I10 - Essential (primary) hypertension Category: Medical Plan: Blood pressure goal less than 130/80. Blood pressure today 124/90. He reports following with Nephrology and recently had a 24 hour blood pressure monitor done. Following that test results his blood pressure medications were titrated upward. No med changes made at this time. Continue to follow with Nephrology. (5) Hyperlipidemia: Code(s): E78.5 - Hyperlipidemia, unspecified Category: Medical Plan: [place] LDL goal less than 100. Followed by his PCP. Continue atorvastatin. Plan I discussed with the patient that his symptoms of chest discomfort and palpitations have improved. We reviewed his recent normal stress test result. I explained that we are awaiting results from his echocardiogram, which assesses the heart's structure and function, and his Holter monitor. We extensively discussed his primary concern of tachycardia triggered by alcohol. I explained that his description is consistent with sinus tachycardia rather than atrial fibrillation. I advised him that avoiding alcohol is the most direct way to prevent these episodes. I also educated him on concerning symptoms during exertion, such as chest pressure, heaviness, or squeezing, which he denies experiencing. I outlined the follow-up plan, stating we would call him with the echocardiogram result and schedule an appointment from our end if it is abnormal. I clarified that since we will not receive the Holter monitor results directly, he would need to call us to arrange a follow-up if there are any abnormalities on that report. Otherwise, follow-up will be on an as-needed basis. Patient Instructions: - It is recommended that you avoid or limit your alcohol intake to prevent these episodes from happening. - Continue with your daily exercise, and pay attention to how your body feels. - If you feel new chest pressure, squeezing, or heaviness during exercise, you should seek medical attention. - We are waiting for the results of your recent heart tests (echocardiogram and Holter monitor). - Our office will call you with the result of the echocardiogram (heart ultrasound). - You will need to contact your other doctor's office to get the results from the Holter monitor you wore. - If that test shows any problems, please call us to make a follow-up appointment. - For now, you do not need to schedule another appointment unless a test result is abnormal or your symptoms change. Patient was informed and verbally consented to the use of an ambient scribe for clinic note documentation during this visit. Visit time spent on chart review, interview, assessment, orders, documentation. Coding Level of Care Code Est Pt Level 3 (94774) Add On Problem Visit Only Diagnoses Chest discomfort R07.89 Palpitation R00.2 Epigastric discomfort R10.13 HTN (hypertension) I10 Hyperlipidemia E78.5 Time Spent (min) 24
--- OUTSIDE RECORDS SUMMARY | 2025-10-17 08:44 | XMS_ITS | Clinical Summary ---
Author Organization [facility] Address [address] [address] Phone Care Team Providers Care Esl Tutor Name Role Phone Wil Cao MD Primary Care Provider Allergies No known active allergies Medications omeprazole (PriLOSEC) [address] capsule 1 (one) time each day 6 Active Multiple Vitamin (multivitamin) capsule Take 1 capsule by mouth 1 (one) time each day Active Warner-3 Fatty Acids (Fish Oil) 1000 MG capsule [...] Office Visit [facility] [address] [address] Aiyana Callahan ARNP Essential hypertension [...] Visit [facility] [address] [address] [place] AiyanaBRIGETTE [address] [address] Health Maintenance Due Date Last [...] Glucose 107(H) 70 - 99 mg/dL [facility] BUN 13 6 - 24 mg/dL [facility] Creatinine 0.88 0.76 - 1.27 mg/dL [facility] eGFR CKD-EPI CR 2020 108 >59 mL/min/1.7 3 [facility] BUN/Creatinine Ratio 15 9 - 20 [facility] Sodium 142 134 - 144 mmol/L [facility] Potassium 4.7 3.5 - 5.2 mmol/L [facility] Chloride 103 96 - 106 mmol/L [facility] Bicarbonate (CO2) 24 20 - 29 mmol/L [facility] Calcium 9.7 8.7 - 10.2 mg/dL [facility] Blood Venous blood / Unknown 08/23/2025 8:57 AM EDT 08/23/[address] [facility] LAB BLOOD ORDERABLES Final Result Performing Organization Address City/[facility]/ZIP Co de Phone Number [facility] [address] [place] [address] * Urine Protein / creatinine ratio (08/23/2025 8:56 AM EDT) Creatinine, Ur 164.5 Not Estab. mg/dL [facility] Protein, Ur 15.2 Not Estab. mg/dL [facility] Urine Protein/Creatin ine Ratio 92 0 - 200 mg/g creat [facility] Urine Urine specimen obtained by clean catch procedure / Unknown 08/23/2025 8:56 AM EDT 08/23/2025 [facility] URINE ORDERABLES Final Result Performing Organization Address City/[facility]/ZIP Co de Phone Number [facility] [address] [place] [phone] * Urine Albumin / Creatinine Ratio (08/23/2025 8:56 AM EDT) Albumin, Urine 4.1 Not Estab. ug/mL [facility] Albumin/Creatin ine Ratio 2 0 - 29 mg/g creat [facility] Comment: Normal: 0 - 29 Moderately increased: 30 - 300 Severely increased: >300 Urine Urine specimen obtained by clean catch procedure / Unknown 08/23/2025 8:56 AM EDT 08/23/2025 Aiyana [place] [facility] LAB URINE ORDERABLES Final Result [facility] [address] [place] [phone] from Last 3 Months Insurance Care Teams Esl Tutor Relationship Specialty Start Date End Date Wil Cao MD [address] [place] [address] PCP - General 11/05/20
--- OUTSIDE RECORDS SUMMARY | 2025-10-17 08:44 | XMS_ITS | Encounter Summary ---
Author Organization [facility] Address [address] [facility] [address] [place] [address] Phone Care Team Providers Care Quality Review Specialist Name Role Phone Wil Cao MD Primary Care Provider [phone] Encounter Details Date Type Department Care Team (Late Contact Info) Description 03/05/2021 Orders Only [facility] [address] [facility] [facility] [address] [place] [phone] Provider, MD Wilbur Social History Tobacco Use [...] [facility] [address] [facility] [address] [place] [phone] Aiyana Callahan ARNP [address] [phone] documented as of this encounter Procedures Procedure Name Priority Date/Time Associated Diagnosis Comments EXT RESULT ENTRY Routine 10/30/2020 documented in this encounter Results * EXT RESULT ENTRY (10/30/2020) us Historical Provider LAB BLOOD ORDERABLES Kya l Result documented in this encounter Visit Diagnoses Not on filedocumented in this encounter Care Teams Quality Review Specialist Relationship Specialty Start Date End Date Wil Cao MD [address] [place] [address] PCP - General 11/05/20 documented as of this encounter
--- OUTSIDE RECORDS SUMMARY | 2025-10-17 08:44 | XMS_ITS | Clinical Summary ---
Author Organization LL [address] [place] [address] [place] [phone] Phone Care Team Providers Care Engineering Technician Parking Name Role Phone Wil Cao MD Primary Care Provider [phone] Allergies No known active allergies Encounters Date Type Department Care Team Description 09/29/2025 8:14 PM EST - 09/30/2025 12:[address] [facility] [address] [place] [address] Discharge Disposition: Left Against Medical Advice 07/26/2025 3:20 AM EDT - 07/26/2025 5:[address] [facility] [address] [place] [address] Discharge Disposition: Home or Self Care 07/25/2025 9:43 PM EDT - 07/26/2025 2:[address] [facility] [address] [place] [address] Discharge Disposition: Home or Self Care from Last 3 Months Surgical History Surgery Date Site/Laterality Comments OTHER SURGICAL HISTORY 2005 apprx PROCEDURE: MN CURTG/CAUT ANAL FISSURE W/DILAT SPHNCTR SPX 1ST [...] Signed Date: 09/30/2025 12:43 ET Workstation ID: [id number] Transcribed By: Self Edit Transcribed Date: 09/30/2025 [...] Signed Date: 09/30/2025 12:43 ET Workstation ID: [id number] Transcribed By: Self Edit Transcribed Date: 09/30/2025 12:43 ET us Yeimy Hathaway NP IMG XR PROCEDURES Final R esult * Troponin I high sensitivity (09/29/2025 8:32 PM EST) Only the most recent of2 resultswithin the time period is included. High Sensitivity Troponin I 3 <=53 ng/L 09/29/2025 9:47 PM EST [facility] Blood Venous blood specimen / Unknown Venipuncture / Unknown 09/29/2025 8:32 PM EST 09/29/2025 9:19 PM EST us Yeimy Hathaway NP LAB BLOOD ORDERABLES Kya page Result [facility] [address] [place] [address], * CBC auto differential (09/29/2025 8:32 PM EST) Only the most recent of2 resultswithin the time period is included. WBC 7.2 4.8 - 10.8 K/mcL LAB HEMETOLOGY METHOD 09/29/2025 9:27 PM [facility] RBC 5.20 4.50 - 5.50 M/mcL LAB HEMETOLOGY METHOD 09/29/2025 9:27 PM [facility] Hemoglobin 15.0 13.5 - 17.5 g/dL LAB HEMETOLOGY METHOD 09/29/2025 9:27 PM [facility] Hematocrit 44.1 42.0 - 54.0 % LAB HEMETOLOGY METHOD 09/29/2025 9:27 PM [facility] MCV 85.0 79.0 - 98.0 FL LAB HEMETOLOGY METHOD 09/29/2025 9:27 PM [facility] MCH 28.9 27.0 - 32.0 pcg LAB HEMETOLOGY METHOD 09/29/2025 9:27 PM [facility] MCHC 34.0 32.0 - 37.0 g/dL LAB HEMETOLOGY METHOD 09/29/2025 9:27 PM [facility] RDW 13.6 11.0 - 15.0 % LAB HEMETOLOGY METHOD 09/29/2025 9:27 PM [facility] Platelets 226 130 - 400 K/mcL LAB HEMETOLOGY METHOD 09/29/2025 9:27 PM [facility] MPV 10.8 7.0 - 11.0 FL LAB HEMETOLOGY METHOD 09/29/2025 9:27 PM [facility] NRBC 0.0 <1.0 % LAB HEMETOLOGY METHOD 09/29/2025 9:27 PM [facility] NRBC Absolute 0.00 <0.10 K/mcL LAB HEMETOLOGY METHOD 09/29/2025 9:27 PM [facility] Neutrophils Relative 58.6 % LAB HEMETOLOGY METHOD 09/29/2025 9:27 PM [facility] Lymphocytes Relative 26.4 % LAB HEMETOLOGY METHOD 09/29/2025 9:27 PM [facility] Monocytes Relative 11.6 % LAB HEMETOLOGY METHOD 09/29/2025 9:27 PM [facility] Eosinophils Relative 2.5 % LAB HEMETOLOGY METHOD 09/29/2025 9:27 PM [facility] Basophils Relative 0.6 % LAB HEMETOLOGY METHOD 09/29/2025 9:27 PM [facility] Immature Granulocytes Relative 0.3 % LAB HEMETOLOGY METHOD 09/29/2025 9:27 PM [facility] Neutrophils Absolute 4.20 1.50 - 7.00 K/mcL LAB HEMETOLOGY METHOD 09/29/2025 9:27 PM [facility] Lymphocytes Absolute 1.89 1.00 - 5.00 K/mcL LAB HEMETOLOGY METHOD 09/29/2025 9:27 PM [facility] Monocytes Absolute 0.83 0.20 - 1.00 K/mcL LAB HEMETOLOGY METHOD 09/29/2025 9:27 PM [facility] Eosinophils Absolute 0.18 0.00 - 0.50 K/mcL LAB HEMETOLOGY METHOD 09/29/2025 9:27 PM [facility] Basophils Absolute 0.04 0.00 - 0.20 K/mcL LAB HEMETOLOGY METHOD 09/29/2025 9:27 PM [facility] Immature Granulocytes Absolute 0.02 0.00 - 0.03 K/mcL LAB HEMETOLOGY METHOD 09/29/2025 9:27 PM EST [facility] Blood Venous blood specimen / Unknown Venipuncture / Unknown 09/29/2025 8:32 PM EST 09/29/2025 9:19 PM EST Yeimy Hathaway PAINTER ASSISTANT LAB BLOOD ORDERABLES Kya l Result [facility] [address] [place] [address], * B-type natriuretic peptide (09/29/2025 8:32 PM EST) Only the most recent of2 resultswithin the time period is included. BNP 5 <=100 pcg/mL 09/29/2025 9:46 PM EST [facility] Blood Venous blood specimen / Unknown Venipuncture / Unknown 09/29/2025 8:32 PM EST 09/29/2025 9:20 PM EST Narrative [facility] - 09/29/2025 9:46 PM EST Over the counter supplements containing high doses of biotin may interfere with this assay. If interference is suspected, patients shoud be retested after refraining from biotin supplements for 72 hours. Yeimy Hathaway PAINTER ASSISTANT LAB BLOOD ORDERABLES Kya l Result [facility] [address] [place] [address], * (ABNORMAL) Magnesium (09/29/2025 8:32 PM EST) Only the most recent of2 resultswithin the time period is included. Magnesium 1.8(L) 1.9 - 2.6 mg/dL 09/29/2025 9:54 PM EST [facility] Blood Venous blood specimen / Unknown Venipuncture / Unknown 09/29/2025 8:32 PM EST 09/29/2025 9:19 PM EST Yeimy Martinezlela Gillk PAINTER ASSISTANT LAB BLOOD ORDERABLES Kya l Result Performing Organization Address [facility] Co de Phone Number [facility] [address] [place] [address], [place] [phone] * Lipase (09/29/2025 8:32 PM EST) Only the most recent of2 resultswithin the time period is included. Lipase 53 12 - 53 unit/L 09/29/2025 9:54 PM [facility] Blood Venous blood specimen / Unknown Venipuncture / Unknown 09/29/2025 8:32 PM EST 09/29/2025 9:19 PM EST Yeimy Elena Rivas PAINTER ASSISTANT LAB BLOOD ORDERABLES Kya l Result Performing Organization Address [facility] Co de Phone Number [facility] [address] [place] [address], [place] [phone] * (ABNORMAL) Comprehensive metabolic panel (09/29/2025 8:32 PM EST) Only the most recent of2 resultswithin the time period is included. Sodium 140 133 - 145 mmol/L 09/29/2025 9:54 PM [facility] Potassium 4.0 3.5 - 5.5 mmol/L 09/29/2025 9:54 PM [facility] Chloride 103 96 - 110 mmol/L 09/29/2025 9:54 PM [facility] CO2 24 21 - 32 mmol/L 09/29/2025 9:54 PM [facility] Anion Gap 13(H) 3 - 11 09/29/2025 9:54 PM [facility] Glucose 102(H) 70 - 100 mg/dL 09/29/2025 9:54 PM [facility] BUN 20 5 - 25 mg/dL 09/29/2025 9:54 PM [facility] Creatinine 0.96 0.70 - 1.30 mg/dL 09/29/2025 9:54 PM [facility] eGFR 99 >=60 mL/min/1. 73m2 09/29/2025 9:54 PM [facility] Comment:Calculation based on the Chronic Kidney Disease Epidemiology Collaboration (CKD-EPI) equation refit without adjustment for race. BUN/Creatinine Ratio 20.8 09/29/2025 9:54 PM [facility] Calcium 9.5 8.5 - 10.5 mg/dL 09/29/2025 9:54 PM [facility] AST (SGOT) 35 10 - 42 unit/L 09/29/2025 9:54 PM [facility] ALT (SGPT) 72(H) 10 - 60 unit/L 09/29/2025 9:54 PM [facility] Alkaline Phosphatase 90 42 - 121 unit/L 09/29/2025 9:54 PM [facility] Total Protein 7.0 6.0 - 8.0 g/dL 09/29/2025 9:54 PM [facility] Albumin 4.5 3.2 - 5.0 g/dL 09/29/2025 9:54 PM [facility] Total Bilirubin 0.8 0.0 - 1.4 mg/dL 09/29/2025 9:54 PM [facility] Blood Venous blood specimen / Unknown Venipuncture / Unknown 09/29/2025 8:32 PM EST 09/29/2025 9:19 PM EST us Yeimy Hathaway PAINTER ASSISTANT LAB BLOOD ORDERABLES Kya l Result [facility] [address] [place] [address], * ECG 12 lead (09/29/2025 8:24 PM EST) Only the most recent of3 resultswithin the time period is included. Ventricular Rate ECG 119 BPM GEMUSE Atrial Rate 119 BPM GEMUSE P-R Interval 156 ms GEMUSE QRS Duration 80 ms GEMUSE Q-T Interval 302 ms GEMUSE QTc 424 ms GEMUSE P Wave [place] 43 degrees GEMUSE R [place] 48 degrees GEMUSE T [place] 14 degrees GEMUSE ECG Interpretation Sinus tachycardia Otherwise normal ECG When compared with ECG of 26-JUL-2025 03:25, Vent. rate has increased BY 42 BPM Borderline criteria for Inferior infarct are no longer Present Confirmed by Randy MARCH JOHN ([id number]) on 09/30/2025 2:56:04 PM GEMUSE 09/29/2025 8:24 PM EST 09/30/2025 2:56 PM EST Yeimy Hathaway PAINTER ASSISTANT ECG ORDERABLES Final Res ult GEMUSE from Last 3 Months Insurance [facility] Care Teams Engineering Technician Parking Relationship Specialty Start Date End Date Wil Cao MD [facility] [place] [address] PCP - General Internal Medicine 02/28/25
== END 2025-10-17 09:06 | disposition home or self-care (01) ==
LOC: HO.HCS 08:33
PROVIDERS: PCP Internal Medicine; Visit Provider Nurse Practitioner Family
DX: R07.89 Other chest pain (principal); R00.2 Palpitations; R10.13 Epigastric pain; I10 Essential (primary) hypertension; E78.5 Hyperlipidemia, unspecified
CPT/HCPCS: 99213